=== PATIENT | female | born 1955 | race Caucasian/White ===

== ENCOUNTER 2022-01-08 11:04 | Outpatient (REF) | payer MEDICARE, SELFPAY ==
[2022-01-08 13:49] LABS: MANUAL DIFF FLAG NO
[2022-01-08 13:51] LABS: Appearance Urine Clear; Color Urine Yellow; Glucose Urine UA Negative (Negative); Leukocyte Esterase Urine Small (1+) (Negative); Nitrite Urine Negative (Negative); PH 5.5 (5.0-9.0); UMIC TRIGGER UA YES; Urine Blood Negative (Negative); Urine Ketones Negative (Negative); Urine Protein Negative (Neg-Trace)
[2022-01-08 13:55] LABS: Basophils Percent Auto 0.4 % (0-2); Eosinophils Absolute Auto 0.3 X10*3/uL (0.0-0.4); Hematocrit 37.6 % (37.0-47.0); Hemoglobin 12.2 g/dl (12.0-16.0); Imm Gran Abs Auto 0.02 X10*3/uL (0.00-0.03); Imm Gran Pct Auto 0.2 % (0.0-0.4); Lymphocytes Absolute Auto 2.3 X10*3/uL (1.2-4.9); Lymphocytes Percent Auto 23.6 % (20-40); Mean Corpuscular HGB Conc 32.4 g/dl (31.0-35.0); Mean Corpuscular Hemoglobin 27.4 pg (27.0-33.0); Mean Corpuscular Volume 84.5 fL (80.0-98.0); Mean Platelet Volume 9.8 fL (9.4-12.3); Monocytes Absolute Auto 0.9 X10*3/uL (0.1-1.2); Monocytes Percent Auto 8.9 % (2-11); Neutrophils Absolute Auto 6.2 x10*3/uL (2.0-8.3); Neutrophils Percent Auto 63.9 % (45-73); Platelet Count 394 X10*3/uL (160-400); Red Blood Count 4.45 X10*6/uL (4.20-5.50); White Blood Count 9.7 X10*3/uL (4.8-10.8)
[2022-01-08 14:05] LABS: Bacteria Urine None Seen (None Seen); C Reactive Protein 0.71 mg/dL (< or = 0.50); Hyaline Casts Urine 0-2 /LPF (0-2); RBC Urine 0-2 /HPF (0-2); Rheumatoid Factor < 15.0 IU/mL (<15.0); Squamous Epithelial Cell Urine 0-2 /HPF (0-2); Uric Acid 6.3 mg/dL (2.4-5.7); WBC Urine 0-5 /HPF (0-5)
[2022-01-08 14:33] LABS: Creatinine Urine 159.06 mg/dL; Total Protein Urine Random < 7 mg/dL (<12)
[2022-01-08 15:25] LABS: Erythrocyte Sedimentation Rate 23 MM/HR (0-20)
[2022-01-09 04:56] LABS: HBc Num1 0.09 S/CO (0.00-0.79); HBsAGNum1 0.17 S/CO (0.00-0.99); Hepatitis A Antibody IgM 0.19 Index (0-0.79); Hepatitis B Core Antibody Nonreactive (Nonreactive); Hepatitis B Surface Antigen Negative (Negative); ~HepC Num1 0.12 S/CO (0.00-0.79); ~Hepatitis A Antibody IgM Nonreactive (Nonreactive); ~Hepatitis B Surface Antibody NONREACTIVE (Nonreactive); ~Hepatitis C Antibody Nonreactive (Nonreactive)
[2022-01-09 10:57] LABS: Complement C3 167 mg/dL (83-193)
[2022-01-10 14:56] LABS: IgA 121 mg/dL (70-320); IgG 917 mg/dL (600-1540); IgM 77 mg/dL (50-300)
[2022-01-10 23:02] LABS: Prot Elec - Albumin 4.2 g/dL (3.8-4.8); Prot Elec - Alpha1 0.3 g/dL (0.2-0.3); Prot Elec - Beta 1 0.5 g/dL (0.4-0.6); Prot Elec - Beta 2 0.4 g/dL (0.2-0.5); Prot Elec - Gamma 0.8 g/dL (0.8-1.7); Prot Elec - Total Protein 7.1 g/dL (6.1-8.1)
[2022-01-10 23:11] LABS: Anti DNA DS Antibody <1 IU/mL; Antibody to SS-A Antigen <1.0 NEG AI (<1.0 NEG); Antibody to SS-B Antigen <1.0 NEG AI (<1.0 NEG); SM/Ribonucleoprotein Ab <1.0 NEG AI (<1.0 NEG); Scleroderma 70 Antibody <1.0 NEG AI (<1.0 NEG); Smith Protein <1.0 NEG AI (<1.0 NEG)
[2022-01-11 00:07] LABS: TS Negative Control Passed; TS Panel A 0; TS Panel B 3; TS Positive Control Passed; TSpotTB Negative (Negative)
[2022-01-11 13:17] LABS: Cyclic Citrullinated Peptide <16 UNITS
[2022-01-11 15:07] LABS: Anti Nuclear Antibody Pattern Nuclear, Centromere; Anti Nuclear Antibody Screen POSITIVE (NEGATIVE)
[2022-01-13 15:36] LABS: Beta-2 Glycoprotein IgA <2.0 U/mL (<20.0); Beta-2 Glycoprotein IgG <2.0 U/mL (<20.0); Beta-2 Glycoprotein IgM <2.0 U/mL (<20.0)
[2022-01-15 14:22] LABS: Cardiolipin IgG Ab <2.0 GPL-U/mL; Cardiolipin IgM Ab <2.0 MPL-U/mL
== END 2022-01-08 11:05 | disposition home or self-care (01) ==
LOC: HO.10HDL 11:04
PROVIDERS: Visit Provider Student in an Organized Health Care Education/Training Program
DX: Z11.59 Encounter for screening for other viral diseases (principal); Z11.7 Encounter for testing for latent tuberculosis infection; M25.512 Pain in left shoulder; M35.3 Polymyalgia rheumatica; R76.8 Other specified abnormal immunological findings in serum
CPT/HCPCS: 36415; 81001; 82784; 84156; 84165; 84550; 85025; 85652; 86038; 86039; 86140; 86146; 86147; 86160; 86200; 86225; 86235; 86334; 86431; 86481; 86704; 86706; 86709; 86803; 87340; 99202

== ENCOUNTER → 2022-02-06 10:23 | Outpatient (BNVA) | payer MEDICARE, SELFPAY | PROVIDERS: PCP Internal Medicine; Referring Provider Internal Medicine; Visit Provider Student in an Organized Health Care Education/Training Program | DX: Z13.820 Encounter for screening for osteoporosis (principal); M35.3 Polymyalgia rheumatica; R76.8 Other specified abnormal immunological findings in serum; M70.61 Trochanteric bursitis, right hip; M70.62 Trochanteric bursitis, left hip | CPT/HCPCS: 99212 ==

== ENCOUNTER 2022-03-26 09:29 | Outpatient (REF) | payer MEDICARE, SELFPAY ==
[2022-03-26 11:11] LABS: MANUAL DIFF FLAG NO
[2022-03-26 11:27] LABS: Basophils Absolute Auto 0.1 X10*3/uL (0.0-0.2); Basophils Percent Auto 0.7 % (0-2); Eosinophils Absolute Auto 0.4 X10*3/uL (0.0-0.4); Eosinophils Percent Auto 4.2 % (0-4); Hemoglobin 11.9 g/dl (12.0-16.0); Imm Gran Abs Auto 0.04 X10*3/uL (0.00-0.03); Imm Gran Pct Auto 0.4 % (0.0-0.4); Lymphocytes Absolute Auto 2.9 X10*3/uL (1.2-4.9); Lymphocytes Percent Auto 27.6 % (20-40); Mean Corpuscular HGB Conc 32.2 g/dl (31.0-35.0); Mean Corpuscular Hemoglobin 27.4 pg (27.0-33.0); Mean Corpuscular Volume 85.1 fL (80.0-98.0); Mean Platelet Volume 9.8 fL (9.4-12.3); Monocytes Absolute Auto 0.9 X10*3/uL (0.1-1.2); Monocytes Percent Auto 9.1 % (2-11); Platelet Count 370 X10*3/uL (160-400); Red Blood Count 4.35 X10*6/uL (4.20-5.50); Red Cell Distribution Width 13.3 % (11.0-16.0); White Blood Count 10.4 X10*3/uL (4.8-10.8)
[2022-03-26 11:54] LABS: Alanine Aminotransferase 20 U/L (0-31); Albumin Level 4.2 g/dL (3.5-5.0); Alkaline Phosphatase 75 U/L (39-117); Anion Gap 11 (12-20); Aspartate Amino Transferase 19 U/L (5-31); Bilirubin Total 0.5 mg/dL (0.0-1.0); Blood Urea Nitrogen 19 mg/dL (9-16); C Reactive Protein 0.74 mg/dL (< or = 0.50); Calcium 9.4 mg/dL (8.4-10.2); Carbon Dioxide 32 mmol/L (22-29); Chloride 101 mmol/L (96-108); Estimated Glomerular Filt Rate > 60; Glucose Random 100 mg/dL (60-115); Potassium 3.8 mmol/L (3.3-5.1); Sodium 140 mmol/L (135-145); Total Protein 6.7 g/dL (6.5-8.0)
[2022-03-26 12:02] LABS: Erythrocyte Sedimentation Rate 23 MM/HR (0-20)
== END 2022-03-26 09:30 | disposition home or self-care (01) ==
LOC: HO.WFDLDS 09:29
PROVIDERS: Visit Provider Student in an Organized Health Care Education/Training Program
DX: M35.3 Polymyalgia rheumatica (principal)
CPT/HCPCS: 36415; 80053; 85025; 85652; 86140

== ENCOUNTER → 2022-04-03 10:09 | Outpatient (BNVA) | payer MEDICARE, SELFPAY | PROVIDERS: PCP Internal Medicine; Visit Provider Student in an Organized Health Care Education/Training Program | DX: M35.3 Polymyalgia rheumatica (principal); Z13.820 Encounter for screening for osteoporosis; R76.8 Other specified abnormal immunological findings in serum; M70.61 Trochanteric bursitis, right hip; M70.62 Trochanteric bursitis, left hip | CPT/HCPCS: 99212 ==

== ENCOUNTER 2022-06-27 11:30 | Outpatient (REF) | payer MEDICARE, SELFPAY ==
[2022-06-27 13:59] LABS: MANUAL DIFF FLAG NO
[2022-06-27 14:05] LABS: Basophils Absolute Auto 0.1 X10*3/uL (0.0-0.2); Basophils Percent Auto 0.6 % (0-2); Eosinophils Absolute Auto 0.3 X10*3/uL (0.0-0.4); Eosinophils Percent Auto 2.9 % (0-4); Hematocrit 37.7 % (37.0-47.0); Hemoglobin 12.2 g/dl (12.0-16.0); Imm Gran Abs Auto 0.03 X10*3/uL (0.00-0.03); Imm Gran Pct Auto 0.3 % (0.0-0.4); Lymphocytes Absolute Auto 2.6 X10*3/uL (1.2-4.9); Lymphocytes Percent Auto 29.3 % (20-40); Mean Corpuscular HGB Conc 32.4 g/dl (31.0-35.0); Mean Corpuscular Hemoglobin 26.9 pg (27.0-33.0); Mean Platelet Volume 9.8 fL (9.4-12.3); Monocytes Absolute Auto 0.8 X10*3/uL (0.1-1.2); Monocytes Percent Auto 9.3 % (2-11); Neutrophils Absolute Auto 5.1 x10*3/uL (2.0-8.3); Neutrophils Percent Auto 57.6 % (45-73); Platelet Count 355 X10*3/uL (160-400); Red Blood Count 4.54 X10*6/uL (4.20-5.50); Red Cell Distribution Width 13.4 % (11.0-16.0); White Blood Count 8.8 X10*3/uL (4.8-10.8)
[2022-06-27 14:49] LABS: Erythrocyte Sedimentation Rate 22 MM/HR (0-20)
[2022-06-27 15:05] LABS: Alanine Aminotransferase 18 U/L (0-31); Albumin Level 4.2 g/dL (3.5-5.0); Alkaline Phosphatase 79 U/L (39-117); Anion Gap 13 (12-20); Aspartate Amino Transferase 19 U/L (5-31); Bilirubin Total 0.7 mg/dL (0.0-1.0); Blood Urea Nitrogen 25 mg/dL (9-16); Calcium 9.3 mg/dL (8.4-10.2); Carbon Dioxide 29 mmol/L (22-29); Chloride 99 mmol/L (96-108); Estimated Glomerular Filt Rate > 60; Glucose Random 100 mg/dL (60-115); Potassium 4.3 mmol/L (3.3-5.1); Sodium 137 mmol/L (135-145); Total Protein 6.7 g/dL (6.5-8.0)
== END 2022-06-27 11:31 | disposition home or self-care (01) ==
LOC: HO.WFDLDS 11:30
PROVIDERS: Visit Provider Student in an Organized Health Care Education/Training Program
DX: M35.3 Polymyalgia rheumatica (principal)
CPT/HCPCS: 36415; 80053; 85025; 85652; 86140

== ENCOUNTER 2022-07-02 11:27 | Outpatient (REF) | payer MEDICARE, SELFPAY ==
--- NOTE | ~2022-07-02 | XR_ITS ---
EXAMINATION: XR SHOULDER, LEFT CLINICAL INFORMATION: Pain. COMPARISON: None available. TECHNIQUE: AP external rotation, Grashey, scapular Y, and axillary views of the left shoulder. FINDINGS: Bony alignment and mineralization are normal. The glenohumeral joint is intact and shows minimal peripheral osteophyte formation. The acromioclavicular and coracoclavicular intervals are normal. There is mild osteoarthritic change of the acromioclavicular joint. No fracture or dislocation is seen. Within the soft tissues anterior to the proximal left humeral shaft, a 1.7 x 1.2 x 0.6 cm well-marginated calcification is seen, possibly a focus of myositis ossificans. There is no foreign body. No left pneumothorax is seen. XR/XR shoulder LT min 2V IMPRESSION: 1. There is minimal osteoarthritic change of the left glenohumeral joint, and mild osteoarthritic change is seen of the left acromioclavicular joint. 2. No fracture or dislocation is seen. 3. A small focus of myositis ossificans is suspected in the soft tissues anterior to the proximal left humeral shaft.
== END 2022-07-02 11:28 | disposition home or self-care (01) ==
LOC: HO.XRAY 11:27
PROVIDERS: PCP Internal Medicine; Visit Provider Student in an Organized Health Care Education/Training Program
DX: M25.512 Pain in left shoulder (principal); M35.3 Polymyalgia rheumatica; I10 Essential (primary) hypertension; E03.9 Hypothyroidism, unspecified; E78.5 Hyperlipidemia, unspecified; R76.8 Other specified abnormal immunological findings in serum; Z79.899 Other long term (current) drug therapy; Z79.52 Long term (current) use of systemic steroids
CPT/HCPCS: 73030; 99212

== ENCOUNTER 2022-10-08 10:03 | Outpatient (REF) | payer MEDICARE, SELFPAY ==
[2022-10-08 11:12] LABS: MANUAL DIFF FLAG NO
[2022-10-08 11:32] LABS: Basophils Absolute Auto 0.1 X10*3/uL (0.0-0.2); Basophils Percent Auto 0.8 % (0-2); Eosinophils Absolute Auto 0.2 X10*3/uL (0.0-0.4); Hematocrit 36.7 % (37.0-47.0); Imm Gran Abs Auto 0.02 X10*3/uL (0.00-0.03); Imm Gran Pct Auto 0.3 % (0.0-0.4); Lymphocytes Absolute Auto 2.1 X10*3/uL (1.2-4.9); Lymphocytes Percent Auto 25.6 % (20-40); Mean Corpuscular HGB Conc 32.7 g/dl (31.0-35.0); Mean Corpuscular Hemoglobin 27.5 pg (27.0-33.0); Mean Platelet Volume 10.2 fL (9.4-12.3); Monocytes Absolute Auto 0.6 X10*3/uL (0.1-1.2); Neutrophils Percent Auto 62.3 % (45-73); Platelet Count 420 X10*3/uL (160-400); Red Blood Count 4.37 X10*6/uL (4.20-5.50); Red Cell Distribution Width 14.2 % (11.0-16.0)
[2022-10-08 11:58] LABS: Alanine Aminotransferase 17 U/L (0-31); Albumin Level 4.1 g/dL (3.5-5.0); Alkaline Phosphatase 77 U/L (39-117); Anion Gap 13 (12-20); Aspartate Amino Transferase 18 U/L (5-31); Bilirubin Total 0.9 mg/dL (0.0-1.0); Blood Urea Nitrogen 24 mg/dL (9-16); C Reactive Protein 0.82 mg/dL (< or = 0.50); Calcium 10.1 mg/dL (8.4-10.2); Carbon Dioxide 27 mmol/L (22-29); Chloride 102 mmol/L (96-108); Estimated Glomerular Filt Rate > 60; Glucose Random 107 mg/dL (60-115); Potassium 3.4 mmol/L (3.3-5.1); Sodium 139 mmol/L (135-145); Total Protein 6.9 g/dL (6.5-8.0)
[2022-10-08 12:09] LABS: Erythrocyte Sedimentation Rate 23 MM/HR (0-20)
== END 2022-10-08 10:04 | disposition home or self-care (01) ==
LOC: HO.WFDLDS 10:03
PROVIDERS: Visit Provider Student in an Organized Health Care Education/Training Program
DX: M35.3 Polymyalgia rheumatica (principal)
CPT/HCPCS: 36415; 80053; 85025; 85652; 86140

== ENCOUNTER 2022-12-06 10:57 | Outpatient (REF) | payer MEDICARE, SELFPAY ==
[2022-12-06 14:34] LABS: MANUAL DIFF FLAG NO
[2022-12-06 14:57] LABS: Basophils Absolute Auto 0.1 X10*3/uL (0.0-0.2); Basophils Percent Auto 0.9 % (0-2); Eosinophils Absolute Auto 0.2 X10*3/uL (0.0-0.4); Eosinophils Percent Auto 2.4 % (0-4); Hematocrit 36.6 % (37.0-47.0); Hemoglobin 11.9 g/dl (12.0-16.0); Imm Gran Abs Auto 0.02 X10*3/uL (0.00-0.03); Imm Gran Pct Auto 0.2 % (0.0-0.4); Lymphocytes Percent Auto 24.7 % (20-40); Mean Corpuscular HGB Conc 32.5 g/dl (31.0-35.0); Mean Corpuscular Hemoglobin 27.8 pg (27.0-33.0); Mean Corpuscular Volume 85.5 fL (80.0-98.0); Mean Platelet Volume 10.2 fL (9.4-12.3); Monocytes Absolute Auto 0.8 X10*3/uL (0.1-1.2); Monocytes Percent Auto 9.3 % (2-11); Neutrophils Absolute Auto 5.1 x10*3/uL (2.0-8.3); Neutrophils Percent Auto 62.5 % (45-73); Platelet Count 424 X10*3/uL (160-400); Red Blood Count 4.28 X10*6/uL (4.20-5.50); Red Cell Distribution Width 13.5 % (11.0-16.0); White Blood Count 8.2 X10*3/uL (4.8-10.8)
[2022-12-06 15:10] LABS: Alanine Aminotransferase 17 U/L (0-31); Albumin Level 4.3 g/dL (3.5-5.0); Alkaline Phosphatase 74 U/L (39-117); Anion Gap 12 (12-20); Aspartate Amino Transferase 19 U/L (5-31); Bilirubin Total 0.6 mg/dL (0.0-1.0); Blood Urea Nitrogen 22 mg/dL (9-16); C Reactive Protein 0.94 mg/dL (< or = 0.50); Carbon Dioxide 29 mmol/L (22-29); Chloride 100 mmol/L (96-108); Estimated Glomerular Filt Rate > 60; Glucose Random 105 mg/dL (60-115); Potassium 3.8 mmol/L (3.3-5.1); Sodium 137 mmol/L (135-145); Total Protein 7.1 g/dL (6.5-8.0)
[2022-12-06 15:37] LABS: Erythrocyte Sedimentation Rate 27 MM/HR (0-20)
== END 2022-12-06 10:58 | disposition home or self-care (01) ==
LOC: HO.WFDLDS 10:57
PROVIDERS: Visit Provider Student in an Organized Health Care Education/Training Program
DX: M35.3 Polymyalgia rheumatica (principal)
CPT/HCPCS: 36415; 80053; 85025; 85652; 86140

== ENCOUNTER 2022-12-10 07:50 | Outpatient (AMB) | payer MEDICARE, SELFPAY ==
[2022-12-10 07:53] VITALS: BP 154/66; PULSE 76; TEMP 36.2; O2SAT 99; BMI 30.2
--- NOTE | 2022-12-10 07:53 | MHC.OFFVIS ---
Intake Vital Signs 12/10/22 07:53 Height 5 ft 4 in Weight 175 lb 11.335 oz BMI 30.2 BP 154/66 H Blood Pressure Location Rt brachial Position Sitting Pulse 76 Pulse Source Pulse Oximeter Temp 97.2 F Temp Source Skin Pulse Oximetry (%) 99 Oxygen Delivery Method Room Air Comment just took bp meds Intake Visit Reasons: PMR Intake Note: Patient here for PMR follow up. Recent hospitalization at [facility]. 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 Over the last few months patient went to the emergency room once for elevated blood pressure, she was found to have renal artery stenosis and her blood pressure medications are being adjusted. Patient was also admitted for colitis for 4-5 days. She states that she continues to get intermittent nausea and stomach upset, intermittent loose stools. She is currently on 5 mg daily a prednisone 3 mg in the morning and 2 mg at night. Feels quite well on 5 mg of prednisone. Not 100% Initial history: This is a 66-year-old female with a past medical history of hypertension, hypothyroidism, dyslipidemia, anxiety, depression, PMR presents for evaluation of PMR. Condition started in January of 2020 with abrupt onset of diffuse stiffness of her body especially her neck, shoulders, thighs. She was immediately started on prednisone 20 mg with significant improvement of her symptoms. In May of 2020 she went to the ER for headache and at that time she was evaluated for temporal arthritis she was started on prednisone 60 mg daily which did not help her headaches but gave her side effects, eventually she had a temporal artery biopsy which was negative for temporal arteritis. Since then patient has been tapering her prednisone slowly. She is currently on 3 mg of prednisone in the morning and 2 mg at night. She feels that taking a dose at night helps her morning stiffness. She currently feels some stiffness of her arms and thighs in the morning that improves in about half an hour but she remains stiff throughout the day. She denies any pain in her hands or feet. [facility] Medical History PMR (polymyalgia rheumatica) DRAKE positive Depression Anxiety Hypothyroidism Hypertension Surgical History H/O bone graft History of temporal artery biopsy S/P silicone breast implant Hx of tonsillectomy History of 2 sections Family History Father CHF (congestive heart failure) Alzheimer disease Mother Pancreatic cancer Hypertension Diabetes Maternal Uncle Thyroid cancer Sister Psoriasis Social History Household Members: Significant Other Alcohol intake: current Alcohol intake frequency: a few times a month Alcohol type: wine Patient Tobacco Use Status: Never used Tobacco Current occupational status: retired Review of Systems Musc Reports stiffness Psych Reports no additional complaints Physical Exam Vital Signs: Last Vital Signs Temp 97.2 F 12/10/22 07:53 Pulse 76 12/10/22 07:53 BP 154/66 H 12/10/22 07:53 Pulse Ox 99 12/10/22 07:53 Oxygen Delivery Method Room Air 12/10/22 07:53 BMI result Body Mass Index 30.2 Const General: cooperative, healthy appearing, comfortable, no acute distress and well developed Nutritional Appearance: obese Orientation/consciousness: patient oriented x3 Limitations: no limitations HEENT Head: Yes normocephalic and Yes atraumatic Mouth: Normal oral and palatal mucosa present Resp Effort & Inspection: normal respiratory effort and able to speak in complete sentences Auscultation: clear to auscultation bilaterally Cardio Rate: regular rate Rhythm: regular rhythm Heart sounds: S1 normal heart sound present and S2 normal heart sound present Neuro General: patient oriented x3 Extrem Other: No synovitis Mild shoulder stiffness and pain on full abduction No hip stiffness or pain with hip manipulation bilaterally Negative trochanteric bursa area tenderness bilaterally Results Reviewed Results Reviewed: DEXA 06/2020 Lumbar Spine T-score is 3.3. (SD relative to 20-29 y/o adult) Z-score is 5.2. (SD relative to age matched peers) This is considered normal by WHO criteria. ? Left Hip T-score is 2.1. Z-score is 3.7. This is considered normal by WHO criteria. ? Comparison: 07/16/2013 and 10/13/2007. Lumbar spine: 1.5% increase in bone mineral density compared with 2013, not statistically significant. 5.3% increase in bone mineral density compared with 2007, statistically significant at the 95% confidence level. Left hip: 3.6% increase in bone mineral density compared with 2013 and 4.3% increase compared with 2007, both statistically significant at the 95% confidence level. ? Assessment & Plan Assessment & Plan (1) PMR (polymyalgia rheumatica): Comment: Diagnosed 01/2020 with abrupt onset of diffuse stiffness of her body especially her neck, shoulders, thighs.? Dramatic response to prednisone 20 mg. In 05/2020 she went to the ER for headache and at that time she was evaluated for temporal arteritis she was started on prednisone 60 mg daily which did not help her headaches but gave her side effects, eventually she had a temporal artery biopsy which was negative for temporal arteritis. Code(s): M35.3 - Polymyalgia rheumatica Plan: This is a 67-year-old female with PMR who presents for follow-up.? Doing very well on prednisone 5 mg daily. Inflammatory markers slightly elevated. Kevzara was looked into, but patient would have a significantly high co-pay. We discussed our options. I recommend starting methotrexate as a steroid sparing agent. We discussed possible side effects of methotrexate. Patient is worried about side effects but she will read up on low-dose methotrexate. Today patient prefers to stay on prednisone. We discussed long-term side effects of prednisone. Advised yearly ophthalmology follow-up to evaluate for cataracts and glaucoma. Patient's most recent DEXA scan in 2020 was within normal. She is scheduled for another DEXA scan in the coming few months. I also explained cardiovascular toxicity of long-term steroids especially that she has been diagnosed with renal artery stenosis. For now will alternate 5 mg of prednisone with 4 mg daily. Labs before next visit in 3 months (2) DRAKE positive: Code(s): R76.8 - Other specified abnormal immunological findings in serum Plan: Interestingly patient has a positive DRAKE in a centromere pattern. There are no signs of scleroderma. She has no Raynaud's, she has normal nailfold capillaroscopy. Specific sub serologies for scleroderma are negative. (3) Screening for osteoporosis: Code(s): Z13.820 - Encounter for screening for osteoporosis Plan: Bone density scan 2020 showed increased T and Z-score. Patient is scheduled for another DEXA scan in the coming few months. ? Plan I spent 32 minutes reviewing patient's chart, evaluating patient, ordering diagnostic workup, counseling patient and documenting in the chart Orders: Orders Complete Blood Count Auto Diff 3 Months M35.3 - Polymyalgia rheumatica Comprehensive Met. Panel 3 Months M35.3 - Polymyalgia rheumatica C Reactive Protein 3 Months M35.3 - Polymyalgia rheumatica Erythrocyte Sedimentation Rate 3 Months M35.3 - Polymyalgia rheumatica Medications: Changed From prednisone 3mg QAM, 2mg QHS orally per pharmacy request; To prednisone 3mg QAM, 2mg QHS orally 150 tabs 2RF Coding Level of Care Code Est Pt Level 4 (75696) Diagnoses PMR (polymyalgia rheumatica) M35.3 DRAKE positive R76.8 Screening for osteoporosis Z13.820
== END 2022-12-10 08:23 | disposition home or self-care (01) ==
PROVIDERS: PCP Internal Medicine; Visit Provider Student in an Organized Health Care Education/Training Program
DX: M35.3 Polymyalgia rheumatica (principal); R76.8 Other specified abnormal immunological findings in serum; Z13.820 Encounter for screening for osteoporosis
CPT/HCPCS: 99214

== ENCOUNTER → 2022-12-10 07:50 | Outpatient (BNVA) | payer MEDICARE, SELFPAY | PROVIDERS: PCP Internal Medicine; Visit Provider Student in an Organized Health Care Education/Training Program | DX: M35.3 Polymyalgia rheumatica (principal); R76.8 Other specified abnormal immunological findings in serum | CPT/HCPCS: 99212 ==

== ENCOUNTER 2023-02-27 10:35 | Outpatient (REF) | payer MEDICARE, SELFPAY ==
[2023-02-27 14:24] LABS: MANUAL DIFF FLAG NO
[2023-02-27 14:31] LABS: Basophils Absolute Auto 0.1 X10*3/uL (0.0-0.2); Basophils Percent Auto 0.6 % (0-2); Eosinophils Absolute Auto 0.3 X10*3/uL (0.0-0.4); Eosinophils Percent Auto 2.6 % (0-4); Hematocrit 35.5 % (37.0-47.0); Hemoglobin 11.5 g/dl (12.0-16.0); Imm Gran Abs Auto 0.02 X10*3/uL (0.00-0.03); Imm Gran Pct Auto 0.2 % (0.0-0.4); Lymphocytes Absolute Auto 2.3 X10*3/uL (1.2-4.9); Lymphocytes Percent Auto 23.1 % (20-40); Mean Corpuscular HGB Conc 32.4 g/dl (31.0-35.0); Mean Corpuscular Hemoglobin 26.9 pg (27.0-33.0); Mean Corpuscular Volume 82.9 fL (80.0-98.0); Mean Platelet Volume 10.2 fL (9.4-12.3); Monocytes Absolute Auto 0.8 X10*3/uL (0.1-1.2); Monocytes Percent Auto 7.8 % (2-11); Neutrophils Absolute Auto 6.6 x10*3/uL (2.0-8.3); Neutrophils Percent Auto 65.7 % (45-73); Platelet Count 412 X10*3/uL (160-400); Red Blood Count 4.28 X10*6/uL (4.20-5.50); Red Cell Distribution Width 14.2 % (11.0-16.0); White Blood Count 10.1 X10*3/uL (4.8-10.8)
[2023-02-27 14:46] LABS: Alanine Aminotransferase 17 U/L (0-31); Albumin Level 4.2 g/dL (3.5-5.0); Alkaline Phosphatase 70 U/L (39-117); Anion Gap 10 (12-20); Aspartate Amino Transferase 20 U/L (5-31); Bilirubin Total 0.7 mg/dL (0.0-1.0); Blood Urea Nitrogen 22 mg/dL (9-16); C Reactive Protein 0.51 mg/dL (< or = 0.50); Calcium 9.5 mg/dL (8.4-10.2); Carbon Dioxide 30 mmol/L (22-29); Chloride 98 mmol/L (96-108); Estimated Glomerular Filt Rate > 60; Glucose Random 96 mg/dL (60-115); Sodium 134 mmol/L (135-145); Total Protein 7.1 g/dL (6.5-8.0)
[2023-02-27 15:12] LABS: Erythrocyte Sedimentation Rate 23 MM/HR (0-20)
== END 2023-02-27 10:36 | disposition home or self-care (01) ==
LOC: HO.WFDLDS 10:35
PROVIDERS: Visit Provider Student in an Organized Health Care Education/Training Program
DX: M35.3 Polymyalgia rheumatica (principal)
CPT/HCPCS: 36415; 80053; 85025; 85652; 86140

== ENCOUNTER 2023-03-10 09:38 | Outpatient (AMB) | payer MEDICARE, SELFPAY ==
[2023-03-10 09:39] VITALS: BP 132/68; PULSE 57; BMI 29.7
--- NOTE | 2023-03-10 09:39 | A.OFFVIS_ITS ---
Intake Vital Signs 03/10/23 09:39 Height 5 ft 4 in Weight 173 lb 1.006 oz BMI 29.7 BP 132/68 Blood Pressure Location Rt brachial Position Sitting Pulse 57 Pulse Source Pulse Oximeter Intake Visit Reasons: PMR Intake Note: Patient presents today to follow up on PMR. Remains on prednisone. 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 Patient tried alternating for prednisone for more liquor am Alejandro with 5 mg daily and it did not work out for her. She had recurrent joint pain and stiffness. She was lowering her prednisone by 0.25 mg. She is currently on 4 mg daily and doing well with no joint pain or stiffness. She gets some pain on the outside of her hips when she is in bed especially when turning on her side. But she is generally pain free. Able to play with her grandkids. She was evaluated by an eye doctor 6 weeks ago and she was told her evaluation was unremarkable. Initial history: This is a 66-year-old female with a past medical history of hypertension, hypothyroidism, dyslipidemia, anxiety, depression, PMR presents for evaluation of PMR. Condition started in January of 2020 with abrupt onset of diffuse stiffness of her body especially her neck, shoulders, thighs. She was immediately started on prednisone 20 mg with significant improvement of her symptoms. In May of 2020 she went to the ER for headache and at that time she was evaluated for temporal arthritis she was started on prednisone 60 mg daily which did not help her headaches but gave her side effects, eventually she had a temporal artery biopsy which was negative for temporal arteritis. Since then patient has been tapering her prednisone slowly. She is currently on 3 mg of prednisone in the morning and 2 mg at night. She feels that taking a dose at night helps her morning stiffness. She currently feels some stiffness of her arms and thighs in the morning that improves in about half an hour but she remains stiff throughout the day. She denies any pain in her hands or feet. [facility] Medical History PMR (polymyalgia rheumatica) DRAKE positive Depression Anxiety Hypothyroidism Hypertension Surgical History H/O bone graft History of temporal artery biopsy S/P silicone breast implant Hx of tonsillectomy History of 2 sections Family History Father CHF (congestive heart failure) Alzheimer disease Mother Pancreatic cancer Hypertension Diabetes Maternal Uncle Thyroid cancer Sister Psoriasis Social History Household Members: Significant Other Alcohol intake: current Alcohol intake frequency: a few times a month Alcohol type: wine Patient Tobacco Use Status: Never used Tobacco Current occupational status: retired Review of Systems [facility] Reports arthralgias, Denies joint swelling and Denies stiffness Physical Exam Vital Signs: Last Vital Signs Pulse 57 03/10/23 09:39 BP 132/68 03/10/23 09:39 BMI result Body Mass Index 29.7 Const General: cooperative, healthy appearing, comfortable, no acute distress and well developed Nutritional Appearance: obese Orientation/consciousness: patient oriented x3 Limitations: no limitations HEENT Head: Yes normocephalic and Yes atraumatic Resp Effort & Inspection: normal respiratory effort and able to speak in complete sentences Auscultation: clear to auscultation bilaterally Cardio Rate: regular rate Rhythm: regular rhythm Heart sounds: S1 normal heart sound present and S2 normal heart sound present Neuro General: patient oriented x3 Extrem Other: No synovitis Normal range of motion of both shoulders No hip stiffness or pain with hip manipulation bilaterally Mild trochanteric bursa area tenderness bilaterally Results Reviewed Results Reviewed: DEXA 06/2020 Lumbar Spine T-score is 3.3. (SD relative to 20-29 y/o adult) Z-score is 5.2. (SD relative to age matched peers) This is considered normal by WHO criteria. ? Left Hip T-score is 2.1. Z-score is 3.7. This is considered normal by WHO criteria. ? Comparison: 07/16/2013 and 10/13/2007. Lumbar spine: 1.5% increase in bone mineral density compared with 2013, not statistically significant. 5.3% increase in bone mineral density compared with 2007, statistically significant at the 95% confidence level. Left hip: 3.6% increase in bone mineral density compared with 2013 and 4.3% increase compared with 2007, both statistically significant at the 95% confidence level. DXA BONE DENSITY STUDY 1+ SITS AXIAL SKEL Exam Date: 12/24/2022 1:24 PM Ordering Diagnosis: Screening for osteoporosis ? STUDY: DUAL ENERGY X-RAY ABSORPTIOMETRY / DXA ? REASON FOR EXAM: Female, 67 years old. Menopausal/postmenopausal disorder ? TECHNIQUE: Bone Mineral Density (BMD) measurements of the lumbar spine and left hip were obtained. ? COMPARISON: July 03, 2020 ? FINDINGS: ? L1-L4 T score: 3.6. This corresponds to Normal bone density. This represents a 2.6 % increase in bone density compared with prior exam from July 03, 2020. ? Left femoral neck T score: 2.2. This corresponds to Normal bone density. Left total hip T score: 2.3. This corresponds to Normal bone density. This represents a 1.0 % increase in bone density compared with prior exam from July 03, 2020. ? IMPRESSION IMPRESSION: Normal bone density ? ? Assessment & Plan Assessment & Plan (1) PMR (polymyalgia rheumatica): Comment: Diagnosed 01/2020 with abrupt onset of diffuse stiffness of her body especially her neck, shoulders, thighs.? Dramatic response to prednisone 20 mg. In 05/2020 she went to the ER for headache and at that time she was evaluated for temporal arteritis she was started on prednisone 60 mg daily which did not help her headaches but gave her side effects, eventually she had a temporal artery biopsy which was negative for temporal arteritis. Code(s): M35.3 - Polymyalgia rheumatica Plan: This is a 67-year-old female with PMR who presents for follow-up.? Doing very well on prednisone 4 mg daily. Inflammatory markers almost normal In previous visits: Beckie was looked into, but patient would have a significantly high co-pay. We discussed our options. I recommend starting methotrexate as a steroid sparing agent. We discussed possible side effects of methotrexate. Patient is worried about side effects and is not ready to start methotrexate. Patient is doing well on prednisone. Previously when we tapered prednisone down to 2 mg daily she flared. We discussed long-term side effects of prednisone. Advised yearly ophthalmology follow-up to evaluate for cataracts and glaucoma. Patient's most recent DEXA scan in 2022 was within normal. I also explained cardiovascular toxicity of long-term steroids especially that she has been diagnosed with renal artery stenosis. For now remain on 4 mg daily and attempt to slowly taper to 3 mg daily Labs before next visit in 3 months (2) DRAKE positive: Code(s): R76.8 - Other specified abnormal immunological findings in serum Plan: Interestingly patient has a positive DRAKE in a centromere pattern. There are no signs of scleroderma. She has no Raynaud's, she has normal nailfold capillaroscopy. Specific sub serologies for scleroderma are negative. (3) Screening for osteoporosis: Code(s): Z13.820 - Encounter for screening for osteoporosis Plan: Bone density scan 2022 showed increased T and Z-score. ? Plan I spent 27 minutes reviewing patient's chart, evaluating patient, ordering diagnostic workup, counseling patient and documenting in the chart Orders: Orders Comprehensive Met. Panel 3 Months M35.3 - Polymyalgia rheumatica C Reactive Protein 3 Months M35.3 - Polymyalgia rheumatica Erythrocyte Sedimentation Rate 3 Months M35.3 - Polymyalgia rheumatica Complete Blood Count Auto Diff 3 Months M35.3 - Polymyalgia rheumatica Coding Level of Care Code Est Pt Level 4 (63071) Diagnoses PMR (polymyalgia rheumatica) M35.3 DRAKE positive R76.8 Screening for osteoporosis Z13.820
== END 2023-03-10 09:56 | disposition home or self-care (01) ==
PROVIDERS: PCP Internal Medicine; Visit Provider Student in an Organized Health Care Education/Training Program
DX: M35.3 Polymyalgia rheumatica (principal); R76.8 Other specified abnormal immunological findings in serum; Z13.820 Encounter for screening for osteoporosis
CPT/HCPCS: 99214

== ENCOUNTER → 2023-03-10 09:38 | Outpatient (BNVA) | payer MEDICARE, SELFPAY | PROVIDERS: PCP Internal Medicine; Visit Provider Student in an Organized Health Care Education/Training Program | DX: Z13.820 Encounter for screening for osteoporosis (principal); M35.3 Polymyalgia rheumatica; R76.8 Other specified abnormal immunological findings in serum | CPT/HCPCS: 99212 ==

== ENCOUNTER 2023-06-05 10:10 | Outpatient (REF) | payer MEDICARE, SELFPAY ==
[2023-06-05 11:19] LABS: MANUAL DIFF FLAG NO
[2023-06-05 11:44] LABS: Basophils Absolute Auto 0.1 X10*3/uL (0.0-0.2); Basophils Percent Auto 0.5 % (0-2); Eosinophils Absolute Auto 0.3 X10*3/uL (0.0-0.4); Eosinophils Percent Auto 2.5 % (0-4); Hematocrit 36.8 % (37.0-47.0); Hemoglobin 12.2 g/dl (12.0-16.0); Imm Gran Abs Auto 0.03 X10*3/uL (0.00-0.03); Imm Gran Pct Auto 0.3 % (0.0-0.4); Lymphocytes Absolute Auto 2.2 X10*3/uL (1.2-4.9); Lymphocytes Percent Auto 19.8 % (20-40); Mean Corpuscular HGB Conc 33.2 g/dl (31.0-35.0); Mean Corpuscular Hemoglobin 27.4 pg (27.0-33.0); Mean Corpuscular Volume 82.7 fL (80.0-98.0); Mean Platelet Volume 9.8 fL (9.4-12.3); Monocytes Absolute Auto 0.9 X10*3/uL (0.1-1.2); Neutrophils Absolute Auto 7.5 x10*3/uL (2.0-8.3); Neutrophils Percent Auto 68.9 % (45-73); Platelet Count 402 X10*3/uL (160-400); Red Blood Count 4.45 X10*6/uL (4.20-5.50); White Blood Count 10.9 X10*3/uL (4.8-10.8)
[2023-06-05 11:54] LABS: Erythrocyte Sedimentation Rate 23 MM/HR (0-20)
[2023-06-05 12:39] LABS: Alanine Aminotransferase 16 U/L (0-31); Albumin Level 4.2 g/dL (3.5-5.0); Alkaline Phosphatase 78 U/L (39-117); Anion Gap 13 (12-20); Aspartate Amino Transferase 18 U/L (5-31); Bilirubin Total 0.5 mg/dL (0.0-1.0); Blood Urea Nitrogen 24 mg/dL (9-16); C Reactive Protein 0.49 mg/dL (< or = 0.50); Calcium 9.4 mg/dL (8.4-10.2); Carbon Dioxide 30 mmol/L (22-29); Chloride 99 mmol/L (96-108); Estimated Glomerular Filt Rate > 60; Glucose Random 96 mg/dL (60-115); Potassium 3.5 mmol/L (3.3-5.1); Sodium 138 mmol/L (135-145); Total Protein 7.2 g/dL (6.5-8.0)
== END 2023-06-05 10:11 | disposition home or self-care (01) ==
LOC: HO.WFDLDS 10:10
PROVIDERS: Visit Provider Student in an Organized Health Care Education/Training Program
DX: M35.3 Polymyalgia rheumatica (principal)
CPT/HCPCS: 36415; 80053; 85025; 85652; 86140

== ENCOUNTER 2023-06-09 09:13 | Outpatient (AMB) | payer MEDICARE, SELFPAY ==
--- NOTE | 2023-06-09 09:19 | MHC.OFFVIS ---
Intake Vital Signs 06/09/23 09:20 Height 5 ft 4 in Weight 171 lb 1.259 oz BMI 29.4 BP 150/68 H Blood Pressure Location Lt brachial Position Sitting Pulse 61 Pulse Source Pulse Oximeter Temp 97.9 F Temp Source Skin Pulse Oximetry (%) 100 Oxygen Delivery Method Room Air Intake Visit Reasons: PMR Intake Note: Patient last seen 03/10/23 presents today for follow up and test results. [facility] Required: No Accompanied by: Self / Same As Patient Allergies Seasonal Allergies Allergy (Intermediate, Verified 06/09/23 09:19) Sneezing Medication List - Last Reconciled 06/09/23 by Saji Quintanilla MD amlodipine 10 mg PO DAILY aspirin 81 mg PO DAILY fluoxetine 10 mg PO DAILY hydrochlorothiazide 25 mg PO DAILY levothyroxine 50 mcg PO DAILY losartan 100 mg PO DAILY metoprolol succinate ER 25 mg PO DAILY multivitamin 1 tab PO DAILY prednisone 2mg QAM, 1.5mg QHS orally daily; HPI HPI Comments History of Present Illness Details 68-year-old female with PMR returns for follow-up. She is on 3.5 mg of prednisone. 2 mg in the morning and 1.5 mg at night. She feels about the same overall. Only minimal stiffness. States that she pulled a muscle in her right lower back about a week ago. It has improved. She has been evaluated by an eye doctor last December and was told that she has floaters. There was no mention of cataracts or glaucoma. Initial history: This is a 66-year-old female with a past medical history of hypertension, hypothyroidism, dyslipidemia, anxiety, depression, PMR presents for evaluation of PMR. Condition started in January of 2020 with abrupt onset of diffuse stiffness of her body especially her neck, shoulders, thighs. She was immediately started on prednisone 20 mg with significant improvement of her symptoms. In May of 2020 she went to the ER for headache and at that time she was evaluated for temporal arthritis she was started on prednisone 60 mg daily which did not help her headaches but gave her side effects, eventually she had a temporal artery biopsy which was negative for temporal arteritis. Since then patient has been tapering her prednisone slowly. She is currently on 3 mg of prednisone in the morning and 2 mg at night. She feels that taking a dose at night helps her morning stiffness. She currently feels some stiffness of her arms and thighs in the morning that improves in about half an hour but she remains stiff throughout the day. She denies any pain in her hands or feet. [facility] Medical History PMR (polymyalgia rheumatica) DRAKE positive Depression Anxiety Hypothyroidism Hypertension Surgical History H/O bone graft History of temporal artery biopsy S/P silicone breast implant Hx of tonsillectomy History of 2 sections Family History Father CHF (congestive heart failure) Alzheimer disease Mother Pancreatic cancer Hypertension Diabetes Maternal Uncle Thyroid cancer Sister Psoriasis Social History Household Members: Significant Other Alcohol intake: current Alcohol intake frequency: a few times a month Alcohol type: wine Patient Tobacco Use Status: Never used Tobacco Current occupational status: retired Female Reproductive History Menstrual Total pregnancies: 3 Number of Living Children: 2 Ab spontaneous: 1 Review of Systems Musc Reports back pain, Denies joint swelling and Reports stiffness Physical Exam Vital Signs: Last Vital Signs Temp 97.9 F 06/09/23 09:20 Pulse 61 06/09/23 09:20 BP 150/68 H 06/09/23 09:20 Pulse Ox 100 06/09/23 09:20 Oxygen Delivery Method Room Air 06/09/23 09:20 BMI result Body Mass Index 29.4 Const General: cooperative, healthy appearing, comfortable, no acute distress and well developed Nutritional Appearance: obese Orientation/consciousness: patient oriented x3 Limitations: no limitations HEENT Head: Yes normocephalic and Yes atraumatic Resp Effort & Inspection: normal respiratory effort and able to speak in complete sentences Auscultation: clear to auscultation bilaterally Cardio Rate: regular rate Rhythm: regular rhythm Heart sounds: S1 normal heart sound present and S2 normal heart sound present Neuro General: patient oriented x3 Extrem Other: No synovitis Normal range of motion of both shoulders No hip stiffness or pain with hip manipulation bilaterally Mild right lumbar paraspinal muscle tenderness No trochanteric bursa area tenderness today Results Reviewed Results Reviewed: DEXA 06/2020 Lumbar Spine T-score is 3.3. (SD relative to 20-29 y/o adult) Z-score is 5.2. (SD relative to age matched peers) This is considered normal by WHO criteria. ? Left Hip T-score is 2.1. Z-score is 3.7. This is considered normal by WHO criteria. ? Comparison: 07/16/2013 and 10/13/2007. Lumbar spine: 1.5% increase in bone mineral density compared with 2013, not statistically significant. 5.3% increase in bone mineral density compared with 2007, statistically significant at the 95% confidence level. Left hip: 3.6% increase in bone mineral density compared with 2013 and 4.3% increase compared with 2007, both statistically significant at the 95% confidence level. DXA BONE DENSITY STUDY 1+ SITS AXIAL SKEL Exam Date: 12/24/2022 1:24 PM Ordering Diagnosis: Screening for osteoporosis ? STUDY: DUAL ENERGY X-RAY ABSORPTIOMETRY / DXA ? REASON FOR EXAM: Female, 67 years old. Menopausal/postmenopausal disorder ? TECHNIQUE: Bone Mineral Density (BMD) measurements of the lumbar spine and left hip were obtained. ? COMPARISON: July 03, 2020 ? FINDINGS: ? L1-L4 T score: 3.6. This corresponds to Normal bone density. This represents a 2.6 % increase in bone density compared with prior exam from July 03, 2020. ? Left femoral neck T score: 2.2. This corresponds to Normal bone density. Left total hip T score: 2.3. This corresponds to Normal bone density. This represents a 1.0 % increase in bone density compared with prior exam from July 03, 2020. ? IMPRESSION IMPRESSION: Normal bone density ? ? Assessment & Plan Assessment & Plan (1) PMR (polymyalgia rheumatica): Comment: Diagnosed 01/2020 with abrupt onset of diffuse stiffness of her body especially her neck, shoulders, thighs.? Dramatic response to prednisone 20 mg. In 05/2020 she went to the ER for headache and at that time she was evaluated for temporal arteritis she was started on prednisone 60 mg daily which did not help her headaches but gave her side effects, eventually she had a temporal artery biopsy which was negative for temporal arteritis. Code(s): M35.3 - Polymyalgia rheumatica Plan: This is a 68-year-old female with PMR who presents for follow-up.? Doing very well on prednisone 3.5 mg daily. Inflammatory markers almost normal In previous visits: Beckie was looked into, but patient would have a significantly high co-pay. We discussed our options. I recommend starting methotrexate as a steroid sparing agent. We discussed possible side effects of methotrexate. Patient is worried about side effects and is not ready to start methotrexate. Patient is doing well on prednisone 3.5 mg daily. Previously when we tapered prednisone down to 2 mg daily she flared. We discussed long-term side effects of prednisone. Advised yearly ophthalmology follow-up to evaluate for cataracts and glaucoma. Patient's most recent DEXA scan in 2022 was within normal. I also explained cardiovascular toxicity of long-term steroids especially that she has been diagnosed with renal artery stenosis. Can continue with prednisone 3.5 mg daily and consider attempting to lower it to 3 mg daily Labs before next visit in 4 months (2) DRAKE positive: Code(s): R76.8 - Other specified abnormal immunological findings in serum Plan: Interestingly patient has a positive RDAKE in a centromere pattern. There are no signs of scleroderma. She has no Raynaud's, she has normal nailfold capillaroscopy. Specific sub serologies for scleroderma are negative. (3) Screening for osteoporosis: Code(s): Z13.820 - Encounter for screening for osteoporosis Plan: Bone density scan 2022 showed increased T and Z-score. ? Plan I spent 27 minutes reviewing patient's chart, evaluating patient, ordering diagnostic workup, counseling patient and documenting in the chart Orders: Orders Comprehensive Met. Panel 4 Months M35.3 - Polymyalgia rheumatica Erythrocyte Sedimentation Rate 4 Months M35.3 - Polymyalgia rheumatica Complete Blood Count Auto Diff 4 Months M35.3 - Polymyalgia rheumatica C Reactive Protein 4 Months M35.3 - Polymyalgia rheumatica Coding Level of Care Code Est Pt Level 4 (74125) Diagnoses PMR (polymyalgia rheumatica) M35.3 DRAKE positive R76.8 Screening for osteoporosis Z13.820
[2023-06-09 09:20] VITALS: BP 150/68; PULSE 61; TEMP 36.6; O2SAT 100; BMI 29.4
== END 2023-06-09 09:37 | disposition home or self-care (01) ==
PROVIDERS: PCP Internal Medicine; Visit Provider Student in an Organized Health Care Education/Training Program
DX: M35.3 Polymyalgia rheumatica (principal); R76.8 Other specified abnormal immunological findings in serum; Z13.820 Encounter for screening for osteoporosis
CPT/HCPCS: 99214

== ENCOUNTER → 2023-06-09 09:13 | Outpatient (BNVA) | payer MEDICARE, SELFPAY | PROVIDERS: PCP Internal Medicine; Visit Provider Student in an Organized Health Care Education/Training Program | DX: M35.3 Polymyalgia rheumatica (principal); R76.8 Other specified abnormal immunological findings in serum; Z13.820 Encounter for screening for osteoporosis | CPT/HCPCS: 99212 ==

== ENCOUNTER 2023-12-16 09:33 | Outpatient (REF) | payer MEDICARE, SELFPAY ==
[2023-12-16 11:36] LABS: MANUAL DIFF FLAG NO
[2023-12-16 11:56] LABS: Basophils Absolute Auto 0.1 X10*3/uL (0.0-0.2); Eosinophils Absolute Auto 0.3 X10*3/uL (0.0-0.4); Hematocrit 35.2 % (37.0-47.0); Hemoglobin 11.6 g/dl (12.0-16.0); Imm Gran Abs Auto 0.02 X10*3/uL (0.00-0.03); Imm Gran Pct Auto 0.3 % (0.0-0.4); Lymphocytes Absolute Auto 1.8 X10*3/uL (1.2-4.9); Lymphocytes Percent Auto 25.8 % (20-40); Mean Corpuscular Hemoglobin 27.6 pg (27.0-33.0); Mean Corpuscular Volume 83.6 fL (80.0-98.0); Mean Platelet Volume 10.1 fL (9.4-12.3); Monocytes Absolute Auto 0.8 X10*3/uL (0.1-1.2); Monocytes Percent Auto 11.1 % (2-11); Neutrophils Absolute Auto 4.1 x10*3/uL (2.0-8.3); Neutrophils Percent Auto 57.8 % (45-73); Platelet Count 371 X10*3/uL (160-400); Red Blood Count 4.21 X10*6/uL (4.20-5.50); Red Cell Distribution Width 14.2 % (11.0-16.0); White Blood Count 7.1 X10*3/uL (4.8-10.8)
[2023-12-16 11:59] LABS: Alanine Aminotransferase 17 U/L (0-31); Albumin Level 4.2 g/dL (3.5-5.0); Alkaline Phosphatase 68 U/L (39-117); Anion Gap 9 (12-20); Aspartate Amino Transferase 20 U/L (5-31); Bilirubin Total 0.7 mg/dL (0.0-1.0); Blood Urea Nitrogen 24 mg/dL (9-16); C Reactive Protein 0.26 mg/dL (< or = 0.50); Calcium 9.7 mg/dL (8.4-10.2); Carbon Dioxide 32 mmol/L (22-29); Chloride 102 mmol/L (96-108); Estimated Glomerular Filt Rate > 60; Glucose Random 106 mg/dL (60-115); Sodium 139 mmol/L (135-145)
[2023-12-16 12:30] LABS: Erythrocyte Sedimentation Rate 16 MM/HR (0-20)
== END 2023-12-16 09:34 | disposition home or self-care (01) ==
LOC: HO.WFDLDS 09:33
PROVIDERS: Visit Provider Student in an Organized Health Care Education/Training Program
DX: M35.3 Polymyalgia rheumatica (principal)
CPT/HCPCS: 36415; 80053; 85025; 85652; 86140

== ENCOUNTER 2023-12-18 09:41 | Outpatient (AMB) | payer MEDICARE, SELFPAY ==
--- NOTE | 2023-12-18 09:47 | MHC.OFFVIS ---
Vital Signs 12/18/23 09:48 Height 5 ft 4 in Weight 172 lb 9.951 oz BMI 29.6 BP 138/82 Blood Pressure Location Rt brachial Position Sitting Pulse 53 Pulse Source Pulse Oximeter Pulse Oximetry (%) 99 Oxygen Delivery Method Room Air Intake Visit Reasons: PMR Intake Note: Patient last seen by Doctor Saji Quintanilla on 06/09/23. Presents today for PMR follow up and test results. Patient would like refill on prednisone today. Allergies Seasonal Allergies Allergy (Intermediate, Verified 12/18/23 09:51) Sneezing Medication List - Last Reconciled 12/18/23 by Saji Quintanilla MD amlodipine 10 mg PO DAILY aspirin 81 mg PO DAILY fluoxetine 10 mg PO DAILY hydrochlorothiazide 25 mg PO DAILY levothyroxine 50 mcg PO DAILY losartan 100 mg PO DAILY metoprolol succinate ER 25 mg PO DAILY multivitamin 1 tab PO DAILY prednisone 2mg QAM, 1.5mg QHS orally daily; HPI Comments Details: 68-year-old female with PMR returns for follow-up. Patient has been slowly tapering her prednisone. She was doing well on prednisone 2.5 mg daily, she lowered it to 2 mg daily about 2 weeks ago, initially she felt that she was having a mild flare-up but things eventually even gout. She is doing well today with no significant joint pain stiffness or swelling. No recent illnesses. Initial history: This is a 66-year-old female with a past medical history of hypertension, hypothyroidism, dyslipidemia, anxiety, depression, PMR presents for evaluation of PMR. Condition started in January of 2020 with abrupt onset of diffuse stiffness of her body especially her neck, shoulders, thighs. She was immediately started on prednisone 20 mg with significant improvement of her symptoms. In May of 2020 she went to the ER for headache and at that time she was evaluated for temporal arthritis she was started on prednisone 60 mg daily which did not help her headaches but gave her side effects, eventually she had a temporal artery biopsy which was negative for temporal arteritis. Since then patient has been tapering her prednisone slowly. She is currently on 3 mg of prednisone in the morning and 2 mg at night. She feels that taking a dose at night helps her morning stiffness. She currently feels some stiffness of her arms and thighs in the morning that improves in about half an hour but she remains stiff throughout the day. She denies any pain in her hands or feet. [facility] Medical History PMR (polymyalgia rheumatica) DRAKE positive Depression Anxiety Hypothyroidism Hypertension Surgical History H/O bone graft History of temporal artery biopsy S/P silicone breast implant Hx of tonsillectomy History of 2 sections Family History Father CHF (congestive heart failure) Alzheimer disease Mother Pancreatic cancer Hypertension Diabetes Maternal Uncle Thyroid cancer Sister Psoriasis Social History Household Members: Significant Other Alcohol intake: current Alcohol intake frequency: a few times a month Alcohol type: wine Patient Tobacco Use Status: Never used Tobacco Current occupational status: retired Female Reproductive History Menstrual Total pregnancies: 3 Number of Living Children: 2 Ab spontaneous: 1 Review of Systems Musc Denies arthralgias, Denies joint swelling, Denies limited range of motion and Denies stiffness Physical Exam Vital Signs: Last Vital Signs Pulse 53 12/18/23 09:48 BP 138/82 12/18/23 09:48 Pulse Ox 99 12/18/23 09:48 Oxygen Delivery Method Room Air 12/18/23 09:48 BMI result Body Mass Index 29.6 Const General: cooperative, healthy appearing, comfortable, no acute distress and well developed Nutritional Appearance: obese Orientation/consciousness: patient oriented x3 Limitations: no limitations HEENT Head: Yes normocephalic and Yes atraumatic Resp Effort & Inspection: normal respiratory effort and able to speak in complete sentences Neuro General: patient oriented x3 Extrem Other: No synovitis Normal range of motion of both shoulders No hip stiffness or pain with hip manipulation bilaterally No trochanteric bursa area tenderness today Assessment & Plan Assessment & Plan (1) PMR (polymyalgia rheumatica): Comment: Diagnosed 01/2020 with abrupt onset of diffuse stiffness of her body especially her neck, shoulders, thighs.? Dramatic response to prednisone 20 mg. In 05/2020 she went to the ER for headache and at that time she was evaluated for temporal arteritis she was started on prednisone 60 mg daily which did not help her headaches but gave her side effects, eventually she had a temporal artery biopsy which was negative for temporal arteritis. Code(s): M35.3 - Polymyalgia rheumatica Category: Medical Plan: This is a 68-year-old female with PMR who presents for follow-up.? Doing very well on prednisone 2 mg daily. Inflammatory markers normal In previous visits: Beckie was looked into, but patient would have a significantly high co-pay. We discussed our options. I recommend starting methotrexate as a steroid sparing agent. We discussed possible side effects of methotrexate. Patient is worried about side effects and is not ready to start methotrexate. Patient is doing well on prednisone 2 mg daily. Previously when we tapered prednisone down to 2 mg daily she flared. We discussed long-term side effects of prednisone. Advised yearly ophthalmology follow-up to evaluate for cataracts and glaucoma. Patient's most recent DEXA scan in 2022 was within normal. I also explained cardiovascular toxicity of long-term steroids especially that she has been diagnosed with renal artery stenosis. At this time patient is stable on 2 mg daily. Advised patient to stay on this toes for 1-2 months then consider tapering further. Labs before next visit in 6 months (2) DRAKE positive: Code(s): R76.8 - Other specified abnormal immunological findings in serum Category: Medical Plan: Interestingly patient has a positive DRAKE in a centromere pattern. There are no signs of scleroderma. She has no Raynaud's, she has normal nailfold capillaroscopy. Specific sub serologies for scleroderma are negative. (3) Screening for osteoporosis: Code(s): Z13.820 - Encounter for screening for osteoporosis Category: Medical Plan: Bone density scan 2022 showed increased T and Z-score. ? Plan I spent 27 minutes reviewing patient's chart, evaluating patient, ordering diagnostic workup, counseling patient and documenting in the chart Orders: Orders Comprehensive Met. Panel 6 Months M35.3 - Polymyalgia rheumatica C Reactive Protein 6 Months M35.3 - Polymyalgia rheumatica Complete Blood Count Auto Diff 6 Months M35.3 - Polymyalgia rheumatica Erythrocyte Sedimentation Rate 6 Months M35.3 - Polymyalgia rheumatica Medications: Changed From prednisone 2mg QAM, 1.5mg QHS orally daily; To prednisone 2.5 mg (2.5 x 1 mg) PO DAILY 225 tabs 1RF Coding Level of Care Code Est Pt Level 4 (06500) Diagnoses PMR (polymyalgia rheumatica) M35.3 DRAKE positive R76.8 Screening for osteoporosis Z13.820
[2023-12-18 09:48] VITALS: BP 138/82; PULSE 53; O2SAT 99; BMI 29.6
== END 2023-12-18 10:37 | disposition home or self-care (01) ==
PROVIDERS: PCP Internal Medicine; Visit Provider Student in an Organized Health Care Education/Training Program
DX: M35.3 Polymyalgia rheumatica (principal); R76.8 Other specified abnormal immunological findings in serum; Z13.820 Encounter for screening for osteoporosis
CPT/HCPCS: 99214

== ENCOUNTER → 2023-12-18 09:41 | Outpatient (BNVA) | payer MEDICARE, SELFPAY | PROVIDERS: PCP Internal Medicine; Visit Provider Student in an Organized Health Care Education/Training Program | DX: M35.3 Polymyalgia rheumatica (principal); R76.8 Other specified abnormal immunological findings in serum; Z13.820 Encounter for screening for osteoporosis | CPT/HCPCS: 99212 ==

== ENCOUNTER 2024-11-11 10:27 | Outpatient (REF) | payer MEDICARE, SELFPAY ==
--- OUTSIDE RECORDS SUMMARY | 2024-11-11 11:21 | XMS_ITS | Clinical Summary ---
Author Organization [facility] Address [address] [place] [id number] Phone Care Team Providers Care [employer] Name Role Phone Brandon Morales MD Primary Care Provider Allergies Active Allergy Reactions Criticality Noted Date Comments Pollen Extracts 07/08/2007 Medications amLODIPine (NORVASC) 10 MG tablet take 1 tablet by mouth everyday at bedtime 3 Active FLUoxetine (PROZAC) 10 MG capsule Take 1 capsule by mouth every morning. 3 Active hydroCHLOROthiazi de (HYDRODIURIL) 25 MG tablet Take 1 tablet by mouth every morning. 3 Active levothyroxine (SYNTHROID, LEVOTHROID) 50 MCG tablet Take 1 tablet by mouth every morning. 3 Active losartan (COZAAR) 100 MG tablet Take 1 tablet by mouth every morning. 3 Active metoprolol succinate (TOPROL-XL) 25 MG 24 hr tablet Take 1 tablet by mouth every morning. 3 Active predniSONE (DELTASONE) 1 MG tablet 2 TABS IN AM,1 TAB IN PM X30D, 1 & 1/2T IN AM & 1TAB IN PM X30D, 1 AND 1/2 TAB IN AM & 1/2 TAB IN PM 3 Active potassium chloride (MICRO-K) 10 mEq CR capsule TAKE 2 CAPSULE BY MOUTH IN THE MONRING AND 2 CAPSULES IN THE EVENING. DO NOT CRUSH OR CHEW 3 Active Ca cit-D3-mag#[id number] (CALTRATE 600+D) 600 mg calcium- 800 unit-50 mg Tab Take 1 tablet by mouth daily. Active therapeutic multivitamin tablet Take 1 tablet by mouth daily. Active Active Problems Problem Noted Date Diagnosed Date Coronary atherosclerosis 09/30/2022 023 Anxiety and depression 08/29/2021 PMR (polymyalgia rheumatica) 03/22/2020 Hypothyroid 06/21/2015 10/18/2022 Impaired fasting glucose 06/21/2015 023 Chronic rhinitis 12/16/2006 10/18/2022 Obesity, unspecified 10/30/2005 10/18/2022 Pure hypercholesterolemia 09/19/20052022 Hypertension 08/13/2005 10/18/2022 Mitral valve disease 08/13/2005 10/18/2022 Overview (10/18/2022): Mitral Valve Prolapse with Mitral Regurgitation IMO update Immunizations No known immunizations Social History Tobacco Use Types Packs/Day Years Used Date Smoking Tobacco: Never Assessed Education Answer Date Recorded Are you interested in more education? Not on juliana e 07/27/2022 Are you concerned about learning? Not on file 07/27/2022 No 07/27/2022 No 07/27/2022 Digital Access Answer Date Recorded No 08/25/2022 No 08/25/2022 Reliable internet access at home? Not on file 08/25/2022 Device with a working camera? Not on file Comments Unknown Sex and Gender Information Value Date Recorded Sex Assigned at Not on file Legal Sex Female 8:59 AM EDT Gender Identity Not on file Sexual Orientation Not on file Last Filed Vital Signs Vital Sign Reading Time Taken Comments Blood Pressure 181/75 10/18/2022 4:10 PM EDT Pulse 81 10/18/2022 4:10 PM EDT Temperature 36.7 C (98.1 F) 10/18/2022 4:10 PM EDT Respiratory Rate 18 10/18/2022 4:10 PM EDT Oxygen Saturation 98% 10/18/2022 4:10 PM EDT Inhaled Oxygen Concentration - - Weight - - Height - - Body Mass Index - - Plan of Treatment Health Maintenance Due Date Last Done Comments CREATININE LEVEL 1954 POTASSIUM LEVEL 1954 TSH LEVEL 1954 DEPRESSION SCREENING 1966 SMOKING Hx and SMOKELESS TOBACCO SCREENING 1967 HEPATITIS C SCREENING 01/28/1972 LIPID PANEL 01/28/1972 MAMMOGRAM 1994 COLOGUARD 1999 COLONOSCOPY 1999 COLORECTAL CANCER SCREENING 1999 FIT TEST 1999 FOBT 1999 SIGMOIDOSCOPY 1999 VIRTUAL COLONOSCOPY 1999 OSTEOPOROSIS SCREENING INITIAL (ONE-TIME) 2019 BLOOD PRESSURE 04/20/2023 10/18/2022 COVID-19 VACCINE ( season) 2023 02/18/2022, 07/06/2021, 07/06/2021, Additional history exists Adult Td,Tdap Booster 03/04/2028 03/04/2018 , 01/04/2009, 01/15/1998 RSV VACCINE (1 - 1-dose 75+ series) 2029 PNEUMOCOCCAL VACCINES (50+ years) Completed 04/19/2020, 04/06/2019 ZOSTER VACCINES Completed 11/02/2020, 07/29, 08/23/2015 HEPATITIS A VACCINES Aged Out No long er eligible based on patient's age to complete this topic HIB VACCINES Aged Out No longer eligi ble based on patient's age to complete this topic MENINGOCOCCAL VACCINES (ACWY) Aged Out No longer eligible based on patient's age to complete this topic MENINGOCOCCAL VACCINES (B) Aged Out N o longer eligible based on patient's age to complete this topic Medical Devices Not on file Insurance [employer] HMO REPLACEMENT [facility] MEDICARE HMO REPLACEMENT [employer] [facility] REPLACEMENT [facility] MEDICARE HMO REPLACEMENT [facility] MEDICARE HMO REPLACEMENT [employer] [employer] [facility] [facility] REPLACEMENT [facility] MEDICARE HMO REPLACEMENT [employer] H[employer] REPLACEMENT Care Teams [employer] Relationship Specialty Start Date End Date Brandon Morales MD PCP - General Internal Medicine 10/18/22 Additional Source Comments The information contained in this document represents components of the legal health record. It is not the complete legal health record.[facility]
--- OUTSIDE RECORDS SUMMARY | 2024-11-11 11:21 | XMS_ITS | Clinical Summary ---
Author Organization [facility], Address [address] [place] [address] [place] [address] Phone Care Team Providers Care Chlorination Operator Name Role Phone Brandon Morales MD Primary Care Provider [phone] Allergies Active Allergy Reactions Criticality Noted Date Comments Pollen Extract 07/08/2007 Medications FLUoxetine (PROzac) 10 MG capsule Take 10 mg by mouth 1 (one) time each day Active losartan (COZAAR) 100 MG tablet Take 100 mg by mouth 1 (one) time each day Active hydroCHLOROthia zide 25 MG tablet Take 25 mg by mouth 1 (one) time each day Active levothyroxine sodium (TIROSINT) 50 MCG capsule Take 50 mcg by mouth 1 (one) time each day Active predniSONE (DELTASONE) 1 MG tablet Take 1 mg by mouth 1 (one) time each day Active Multiple Vitamin (multivitamin) capsule Take 1 capsule by mouth 1 (one) time each day Active levothyroxine (SYNTHROID, LEVOTHROID) 50 MCG tablet Take 50 mcg by mouth 1 (one) time each day 10/04/2022 Active metoprolol succinate XL (TOPROL XL) 25 MG 24 hr tablet Take 25 mg by mouth 1 (one) time each day Do not crush or chew. Active amLODIPine (NORVASC) 5 MG tablet Take 2 tablets (10 mg total) by mouth 1 (one) time each day 60 tablet 11 11/25/2022 Active Active Problems Problem Noted Date Diagnosed Date Coronary atherosclerosis of unspecified type of vessel, [place] or graft 09/30/2022 Serum creatinine above reference range 0 Cyst of kidney 03/16/2015 Hematuria of undiagnosed cause 07/31/2013 Overview (09/30/2022): IMO update Essential hypertension 08/13/2005 Encounters Date Type Department Care Team Description 11/10/2024 Orders Only [facility], [address] [place] [address] Roro Boucher Essential hypertension (Primary Dx); Vitamin D deficiency, not otherwise specified from Last 3 Months Immunizations Immunization Administration Dates Next Due Influenza Split High Dose Pr eservative Free IM 01/14/2022,01/09/2021,12/30/2019 Influenza, MDCK, PF, Quadrivalent 01/20/2019 Influenza, MDCK, Quadrivalen t, with preservative 01/20/2018,01/15/2017 Influenza, Unspecified 01/14/2022,2014,01/21/2014,01/27,01/17/2012,12/18/2010,01/22/2010 ,12/28/2008,02/12/2008,01/31/2006 Pfizer SARS-COV-2 07/06/2021,,06/15/2020,05/24 Pfizer SARS-CoV-2 Bivalent 3 0 mcg/0.3 mL 02/18/2022 Pneumococcal Conjugate 13-Valent 04/06/2019 Pneumococcal Polysaccharide 04/19/2020 Shingrix 11/02/2020,08/15/2020 Td 03/04/2018,01/15/1998 Tdap 01/04/2009 Zoster 08/23/2015 Family History Medical History Relation Comments Heart disease Father Hypertension Father Diabetes Mother Heart disease Mother Hypertension Mother Autoimmune disease Sister Relation Status Comments Father Mother Sister Social History Tobacco Use Types Packs/Day Years Used Date Smoking Tobacco: Never Smokeless Tobacco: Never Tobacco Cessation:Counseling Given: Not Answered Alcohol Use Standard Drinks/Week Comments Not Currently 0 (1 standard drink = 0.6 oz pure alcohol) used to have 1-2/ week, now only on special occassions and n Comments Unknown Sex and Gender Information Value Date Recorded Sex Assigned at Female 09/23/2022 9:27 AM EDT Legal Sex Female 7:53 AM EDT Gender Identity Female 09/23/2022 9:27 AM EDT Sexual Orientation Straight 09/23/2022 9: 27 AM EDT Plan of Treatment Upcoming Encounters Date Type Department Care Team (Late st Contact Info) Description 11/17/2024 1:30 PM EDT Office Visit [facility], [address] [place] [id number] [place] MD [address] [facility] [place] [id number] Health Maintenance Due Date Last Done Comments Breast Cancer Screening 1954 Colorectal Cancer Screening: Annual FOBT 2003 Colorectal Cancer Screening: Colonoscopy 2003 Colorectal Cancer Screening: Sigmoidoscopy 2003 Influenza Vaccine (#1) 2024 4, 12/20/2022, 01/14/2022, Additional history exists Pneumococcal Vaccine: 50+ Years Completed 04/19/2020, 04/06/2019 Hepatitis B Vaccine Aged Out No longe r eligible based on patient's age to complete this topic Insurance [facility] Care Teams Chlorination Operator Relationship Specialty Start Date End Date Brandon Morales MD [address] [place] [id number] PCP - [facility] 09/10/22
--- OUTSIDE RECORDS SUMMARY | 2024-11-11 11:21 | XMS_ITS | Clinical Summary ---
Author Organization [facility] [address] [place] [address] [address] [place] [address] Phone Care Team Providers Care Childcare Teacher Name Role Phone Brandon Morales MD Primary Care Provider Allergies Active Allergy Reactions Criticality Noted Date Comments Bee Pollen 07/08/2007 Other 07/08/2007 Seasonal Allergies Medications nystatin-triam cinolone (MYCOLOG II) ointment APPLY TO AFFECTED AREA NIGHTLY FOR TWO WEEKS THEN TWICE A WEEK 09/30/19 24 Active aspirin 81 mg EC tablet Take 1 tablet (81 mg total) by mouth 1 (one) time each day. Active CALCIUM CITRATE ORAL Take 1 tablet by mouth 1 (one) time each day. Active multivitamin (MULTIPLE VITAMINS ORAL) 1 tablet 1 (one) time each day. Active potassium chloride 20 mEq tablet extended release Take 20 mEq by mouth 1 (one) time each day. 90 tablet 1 02/06/20 24 Active predniSONE (DELTASONE) 1 mg tablet Take 1 tablet (1 mg total) by mouth 2 (two) times a day. Active metoprolol tartrate (LOPRESSOR) 25 mg tablet Take 1 tablet (25 mg total) by mouth 2 (two) times a day. 180 each 1 07/07/19 25 Active losartan (COZAAR) 100 mg tablet TAKE 1 TABLET BY MOUTH EVERYDAY AT BEDTIME 90 tablet 1 08/05/19 25 Active amLODIPine (NORVASC) 10 mg tablet TAKE 1 TABLET BY MOUTH 1 TIME EACH DAY. 90 tablet 1 08/05/19 25 Active diclofenac (VOLTAREN) 1 % topical gel Apply 1 g topically 3 (three) times a day. 90 g 2 09/09/19 25 Active levothyroxine (SYNTHROID, LEVOTHROID) 50 mcg tablet TAKE 1 TABLET BY MOUTH EVERY DAY 90 tablet 1 10/16/19 25 Active hydroCHLOROthi azide (HYDRODIURIL) 25 mg tablet TAKE 1 TABLET BY MOUTH 1 TIME EACH DAY. 90 tablet 11/05/19 25 Active FLUoxetine (PROzac) 10 mg capsule TAKE 1 CAPSULE BY MOUTH 1 TIME EACH DAY. 90 capsule 11/05/19 25 Active FLUoxetine (PROzac) 10 mg capsule Take 1 capsule (10 mg total) by mouth 1 (one) time each day. 90 capsule 1 02/06/20 24 025 Discontinued hydroCHLOROthi azide (HYDRODIURIL) 25 mg tablet Take 1 tablet (25 mg total) by mouth 1 (one) time each day. 90 tablet 1 02/06/20 24 025 Discontinued levothyroxine (SYNTHROID, LEVOTHROID) 50 mcg tablet Take 1 tablet (50 mcg total) by mouth 1 (one) time each day. 90 tablet 1 02/06/20 24 025 Discontinued Hospital, Clinic, or Other Facility Administered Medication Ordered Dose Route Frequency Start Date End Date Status lidocaine (XYLOCAINE) 1 % injection 4 mLIndications:Primary osteoarthritis of right knee 4 mL inj Once PRN Procedure 10/20/2024 10/20/2024 Ended methylPREDNISolone acetate (DEPO-Medrol) injection 80 mgIndications:Primary osteoarthritis of right knee 80 mg IAtc Once PRN Procedure 10/20/2024 10/20/2024 Ended Active Problems Problem Noted Date Diagnosed Date Prediabetes 02/06/2024 Renal artery stenosis ([facility] V24) 12/17/2022 Hypokalemia 12/17/2022 Anxiety and depression 08/29/2021 PMR (polymyalgia rheumatica) ([facility] V24) 03/22 Elevated serum creatinine 03/22/2020 Positive DRAKE (antinuclear antibody) 03/22/2020 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 Hypothyroidism 06/21/2015 Impaired fasting glucose 06/21/2015 Renal cyst 03/16/2015 Gross hematuria 03/16/2015 Hematuria of undiagnosed cause 07/31/2013 Overview (12/31/2023): IMO update Chronic rhinitis 12/16/2006 Obesity, unspecified 10/30/2005 Anxiety state 10/30/2005 Pure hypercholesterolemia 09/19/2005 Mitral valve disease 08/13/2005 Overview (12/31/2023): Mitral Valve Prolapse with Mitral Regurgitation IMO update Hypertension 08/13/2005 Encounters Date Type Department Care Team Description 10/20/2024 8:30 AM EDT Office Visit Orthopedics - [place] [address] [place] [address] Arnav Aviles PA Primary osteoarthritis of right knee (Primary Dx) 09/08/2024 8:30 AM EDT Office Visit Orthopedics [facility] [address] [place] [address] Arnav Aviles PA Primary osteoarthritis of right knee (Primary Dx) from Last 3 Months Immunizations Name Administration Dates Next Due COVID-19 (Pfizer/Comirnaty) 12yo and older 12/25/2023 Influenza Quadravalent, MDCK , 0.5ml, preservative free (Flucelvax) 6mo and older 01/20/2019 Influenza Quadravalent, MDCK , 0.5ml, with preservative (Flucelvax) 6mo and older 12/20/2022,01/14/2022,01/10/2021,01/20,01/15/2017 Influenza trivalent, 0.5mL ( Fluzone High-dose) 65yo and older 12/25/2023,01/09/2021,12/30/2019 Influenza trivalent, with pr eservative (Fluzone; Afluria) 6mo and older 01/09/2015,01/21/2014,2013,01/16,12/18/2010,01/22/2010,12/28/2008 ,02/12/2008,01/31/2006 Influenza, Unspecified 01/14/2022 Pfizer (ages 12 & older) Biv alent, COVID-19 02/18/2022 Pneumococcal conjugate 13 va lent (Prevnar 13, PCV13) 2mo and older 04/06/2019 Pneumococcal polysaccharide 23 valent (Pneumovax 23) 2yo and older 04/19/2020 Respiratory syncytial virus (RSV), unspecified 01/23/2023 Td Tetanus diptheria (Tdvax) 7yo and older 03/04/2018,01/15/1998 Tdap Tetanus diptheria acell ular pertussis (Boostrix; Adacel) 7yo and older 01/04/2009 Zoster Live 08/23/2015 Zoster recombinant (Shingrix ) 19yo and older 11/02/2020,08/15/2020 Surgical History Surgery Date Site/Laterality Comments COLONOSCOPY 05/2004 PROCEDURE: TN COLONOSCOPY FLX DX W/COLLJ SPEC WHEN PFRMD; COMMENT: normal; due 2014 SECTION PROCEDURE: TN DELIVERY ONLY; COMMENT: 2 C/S TONSILLECTOMY PROCEDURE: HISTORICAL TONSILLECTOMY OTHER SURGICAL HISTORY 1988 Bilateral PROCEDURE: IMPLANT BREAST SILICONE/EQ; COMMENT: x2 OTHER SURGICAL HISTORY 07/06/2020 Left PROCEDURE: TN LIGATION/BIOPSY TEMPORAL ARTERY; COMMENT: temporal artery biopsy negative for arteritis - by Dr. Philippe Parekh [facility] Medical History Medical History Date Comments Pure hypercholesterolemia 09/19/2005 DX:Pur e hypercholesterolemia Mitral valve disorders(424.0) 08/13/2005 DX :Mitral valve disorders(424.0); COMMENT: Mitral Valve Prolapse with Mitral Regurgitation Obesity, unspecified 10/30/2005 DX:Obesity, unspecified Nasal/sinus dis NEC 10/30/2005 DX:Nasal/sin us dis NEC Panic disorder without agoraphobia DX:Panic disorder without agoraphobia Anxiety state, unspecified 10/30/2005 DX:An xiety state, unspecified Essential hypertension, benign D X:Essential hypertension, benign Historical Medical DX 07/31/2013 DX:Hematur ia - cause not known Hypothyroid 06/21/2015 DX:Hypothyroid Lichen sclerosus DX:Lichen scler osus Family History Medical History Relation Name Comments No Known Problems Daughter Heart failure Father No Known Problems Maternal Grandfather No Known Problems Maternal Grandmother Diabetes Mother Hypertension Mother Other cancer Mother pancreatic No Known Problems Other No Known Problems Paternal Grandfather No Known Problems Paternal Grandmother No Known Problems Sister No Known Problems Son No Known Problems Uncle Breast cancer Neg Hx Colon cancer Neg Hx Ovarian cancer Neg Hx Uterine cancer Neg Hx Relation Name Status Comments Daughter Alive Healthy Father (Age 80) Alzheimer' s, pneumonia, CHF Maternal Grandfather Lung Ca ncer Maternal Grandmother [place] Mother (Age 78) Pancreatic Cancer,chf,dm,htn Other Paternal Grandfather [place] Paternal Grandmother heart Sister Alive Healthy Son Alive Healthy Uncle MAT UNCLE-THYRO ID CA Social History Tobacco Use Types Packs/Day Years Used Date Smoking Tobacco: Never Smokeless Tobacco: Never Tobacco Cessation:Counseling Given: Not Answered Alcohol Use Standard Drinks/Week Comments Yes 0 (1 standard drink = 0.6 oz pur e alcohol) Housing Instability Answer Date Recorde d Are you worried that in the next 2 months you may not have stable housing? No 06/29/2024 Food Access & Nutrition Answer Date Rec orded Do you have access to a vari ety of food including fruits and vegetables? Yes 06/29/2024 Access to Healthcare Answer Date Record ed Within the last 3 months, ho w many times did you visit the emergency department for your medical care? 0 06/29/2024 Health Literacy Answer Date Recorded How often do you need to hav e someone help you when you read instructions, pamphlets, or other written material from your doctor or pharmacy? Never 06/29/2024 Caregiver: How often do you need to have someone help you when you read instructions, pamphlets, or other written material from your doctor or pharmacy? Not on file 06/29/2024 Financial Risk Answer Date Recorded How hard is it for you to pa y for the very basics like food, housing, medical care, and air conditioning / heating? Not very hard 06/29/2024 Transportation Answer Date Recorded Has the lack of transportati on kept you from meetings, work, or from getting things needed for daily living? No Has the lack of transportati on kept you from medical appointments or from getting medications? No 06/29/2024 Social Isolation Answer Date Recorded How often do you feel lonely or isolated from th ose around you? Never 06/29/2024 Food Risk Answer Date Recorded Within the past 12 months we worried whether our food would run out before we got money to buy more. Never true 06/29/2024 Within the past 12 months th e food we bought just didn't last and we didn't have money to get more. Never true 06/29/2024 Dependent Care Answer Date Recorded Do you need help finding or paying for care for your loved ones. For example, child & adolescent psychiatrist or elderly care for an older adult? No 06/29/2024 Education Answer Date Recorded Do you think completing more education or training, like finishing a GED, going to college, or learning a trade, would be helpful for you? No 06/29/2024 Employment and Income Answer Date Recor ded During the last four weeks, have you been actively looking for work? No 06/29/2024 Living Situation Answer Date Recorded What is your living situation? 0 06/29/2024 Comments No Sex and Gender Information Value Date Recorded Sex Assigned at Not on file Legal Sex Female 1:38 AM EST Gender Identity Not on file Sexual Orientation Not on file Obstetrics History Last Filed Vital Signs Vital Sign Reading Time Taken Comments Blood Pressure 150/58 07/06/2024 8:13 AM EDT provider to recheck bp Pulse 70 07/06/2024 8:13 AM EDT Temperature 36.5 C (97.7 F) 07/06/2024 8:13 AM EDT Respiratory Rate 16 10/20/2024 8:39 AM EDT Oxygen Saturation 98% 07/06/2024 8:1 3 AM EDT Inhaled Oxygen Concentration - - Weight 78.9 kg (174 lb) 10/20/2024 8:39 AM EDT Height 162.6 cm (5' 4 ) 10/20/2024 8:39 AM EDT Body Mass Index 29.87 10/20/2024 8:39 AM EDT Plan of Treatment Upcoming Encounters Date Type Department Care Team (Late st Contact Info) Description 11/18/2024 8:45 AM EDT Office Visit Orthopedics [address] [phone] Arnav Aviles PA [address] [place] [address] 01/05/2025 8:15 AM EDT Office Visit [facility] [address] [phone] Brandon Morales MD [address] [place] [id number] Health Maintenance Due Date Last Done Comments Falls Risk Assessment 03/09/2022 Medicare Annual Wellness Visit 03/09/2022 Breast Cancer Screening 08/30/2023 08/30/19, 08/24/2020, 01/13/2019, Additional history exists Colorectal Cancer Screening: Stool Based Tests (FOBT/FIT) 01/22/2024 01/21/2023 COVID-19 Vaccine ( season) 2024 12/25/2023, 12/20/2022, 02/18/2022, Additional history exists Influenza Vaccine (#1) 2024 , 12/20/2022, 01/14/2022, Additional history exists Hypertension/CHF/CAD Annual BMP Blood Test 06/29/2025 06/29/2024, 10/31/2023 Social Influencers of Health Screening 06/29/2025 06/29/2024 DTaP,Tdap,and Td Vaccines (4 - Td or Tdap) 03/04/2028 03/04/2018, 01/04/2009, 01/15/1998 Cholesterol Screening (Lipid Panel) 04/25/2028 04/25/2023 RSV Immunization Adult Patients (1 - 1-dose 75+ series) 2029 01/23/2023 Osteoporosis Screening (Bone Density Screening) 12/24/2032 12/24/2022, 07/03/2020 Hepatitis C Screening Completed 12/26/1999 Pneumococcal Vaccine: 50+ Years Completed 04/19/2020, 04/06/2019 Zoster Vaccines Completed 11/02/2020, 07/29, 08/23/2015 RSV Immunization Patients Under 20 months Aged Out 01/23/2023 No longer eligible based on patient's age to complete this topic Depression Screening Completed 06/29/2024 HIB Vaccines Aged Out No longer eligi ble based on patient's age to complete this topic HPV Vaccines Aged Out No longer eligi ble based on patient's age to complete this topic Hepatitis A Vaccines Aged Out No long er eligible based on patient's age to complete this topic Hepatitis B Vaccines Aged Out No long er eligible based on patient's age to complete this topic IPV Vaccines Aged Out No longer eligi ble based on patient's age to complete this topic MMR Vaccines Aged Out No longer eligi ble based on patient's age to complete this topic Meningococcal ACWY Vaccine Aged Out N o longer eligible based on patient's age to complete this topic Meningococcal B Vaccine Aged Out No l onger eligible based on patient's age to complete this topic Varicella Vaccines Aged Out No longer eligible based on patient's age to complete this topic Procedures Procedure Name Priority Date/Time Associated Diagnosis Comments TN ARTHROCENTESIS/ASPI RATION/INJECTION MAJOR JOINT/BURSA W/O U/S GUIDANCE Routine 10/20/2024 8:30 AM EDT Primary osteoarthritis of right knee BASIC METABOLIC PANEL Routine 06/29/2024 8:38 AM EDT Primary hypertension Hypokalemia LIPID PANEL Routine 04/25/2023 HM STOOL BASED TEST Routine 01/21/2023 DXA BONE DENSITY STUDY 1+ SITS AXIAL SKEL Routine 12/24/2022 1:24 PM EDT Encounter for screening for osteoporosis SCREENING MAMMOGRAPHY BI 2-VIEW BREAST INC CAD Routine 08/29/2021 9:27 AM EDT Encounter for screening mammogram for malignant neoplasm of breast HEPATITIS C SCREENING Routine 12/26/1999 from Last 3 Months or Most Recently Relevant to Health Maintenance Results * TN ARTHROCENTESIS/ASPIRATION/INJECTION MAJOR JOINT/BURSA W/O U/S GUIDANCE (10/20/2024 8:30 AM EDT) Narrative Arnav Aviles PA - 10/20/2024 8:30 AM EDT MATHEW Noe 10/20/2024 9:02 AM L Inj/Asp: R knee Indications: pain Details: 22 G needle, anterolateral approach Medications: 4 mL lidocaine 1 %; 80 mg methylPREDNISolone acetate 80 mg/mL Outcome: tolerated well, no immediate complications Informed Consent: Site: Knee Laterality: Right Relevant images/test results available and reviewed: yes Health status cleared: Yes Procedure/treatment, purpose, treatment alternatives, risks/potential complications and benefits explained: yes Risk/complications/benefits details: Risks include but are not limited to: The treatment may not accomplish the desired results. Additionally bleeding, infection, damage to tendon, nerve, cartilage, muscle; thinning or lightening of the skin in the area of injection; flushing or redness of the face, elevated blood pressure or blood sugar, allergic reaction, rash, increased pain Benefits include relief of inflammation and pain Patient questions answered: yes Patient agrees, verbalizes understanding, and wants to proceed: yes Consent given by: Patient Informed consent discussion completed by Physician/ELLE with patient: Verbal Pre-procedure timeout performed: yes us Arnav CARMONA IN CLINIC/BEDSIDE ORDERABLES Fin al Result * (ABNORMAL) Basic metabolic panel (06/29/2024 8:38 AM EDT) Sodium 135 133 - 145 mmol/L LAB CHEMISTRY METHOD 06/29/2024 1:13 PM [facility] Potassium 4.0 3.5 - 5.5 mmol/L LAB CHEMISTRY METHOD 06/29/2024 1:13 PM [facility] Chloride 100 96 - 110 mmol/L LAB CHEMISTRY METHOD 06/29/2024 1:13 PM [facility] CO2 28 21 - 32 mmol/L LAB CHEMISTRY METHOD 06/29/2024 1:13 PM [facility] Anion Gap 7 3 - 11 LAB CHEMISTRY METHOD 06/29/2024 1:13 PM [facility] Glucose 104(H) 70 - 100 mg/dL LAB CHEMISTRY METHOD 06/29/2024 1:13 PM [facility] BUN 21 5 - 25 mg/dL LAB CHEMISTRY METHOD 06/29/2024 1:13 PM [facility] Creatinine 0.82 0.50 - 1.10 mg/dL LAB CHEMISTRY METHOD 06/29/2024 1:13 PM EDT [facility] eGFR 77 >=60 mL/min/1. 73m2 LAB CHEMISTRY METHOD 06/29/2024 1:13 PM EDT [facility] Comment:Calculation based on the Chronic Kidney Disease Epidemiology Collaboration (CKD-EPI) equation refit without adjustment for race. BUN/Creatinine Ratio 25.6 LAB CHEMISTRY METHOD 06/29/2024 1:13 PM EDT [facility] Calcium 9.5 8.5 - 10.5 mg/dL LAB CHEMISTRY METHOD 06/29/2024 1:13 PM EDT [facility] Blood Venous blood specimen / Unknown Venipuncture / Unknown 06/29/2024 8:38 AM EDT 06/29/2024 8:38 AM EDT Brandon Morales MD LAB BLOOD ORDERABLES Final Result [facility] [address] [place] [address], * Lipid panel (04/25/2023) Pathologist [facility] LDL/HDL Ratio 3 0 - 4 Triglycerides 92 0 - 150 mg/dL Cholesterol 187 0 - 200 mg/dL HDL 73 >=40 mg/dL LDL Cholesterol 96 0 - 100 mg/dL Blood Venous blood specimen / Unknown Historical Provider LAB BLOOD ORDERABLES Denise l Result * Stool Based Tests (FOBT/FIT) (01/21/2023) Pathologist [facility] Colorectal Cancer Screening: Stool Based Tests No Interpretation , Abstracted Historical Provider HEALTH MAINTENANCE Final Result * DXA BONE DENSITY STUDY 1+ SITS AXIAL SKEL (12/24/2022 1:24 PM EDT) Anatomical Region Laterality Modality Bone Densitometr y 10/02/2022 10:2 4 AM EDT Narrative 12/25/2022 7:47 PM EDT STUDY: DUAL ENERGY X-RAY ABSORPTIOMETRY / DXA REASON FOR EXAM: Female, 67 years old. Menopausal/postmenopausal disorder TECHNIQUE: Bone Mineral Density (BMD) measurements of the lumbar spine and left hip were obtained. COMPARISON: July 03, 2020 FINDINGS: L1-L4 T score: 3.6. This corresponds to Normal bone density. This represents a 2.6 % increase in bone density compared with prior exam from July 03, 2020. Left femoral neck T score: 2.2. This corresponds to Normal bone density. Left total hip T score: 2.3. This corresponds to Normal bone density. This represents a 1.0 % increase in bone density compared with prior exam from July 03, 2020. IMPRESSION: IMPRESSION: Normal bone density Reference Information: The T-score is the number of standard deviations above or below the standard which is normal for young adults at their peak bone mineral density. The World Health Organization (WHO) interprets the T-scores as follows: Above -1 Normal bone density Between -1 and -2.5 Osteopenia Equal to / or below -2.5 Osteoporosis As a practical clinical guideline, osteopenia may be graded as follows: Mild -1 through -1.5 Moderate -1.6 through -2.0 Severe -2.1 through -2.4 References: 1. NIH Osteoporosis and Related Bone Diseases http://www.osteo.org 2. International Society for Clinical Densitometry http://www.iscd.org 3. National Osteoporosis Foundation http://www.nof.org Procedure Note Milvia Meeks MD - 05/06/2023 STUDY: DUAL ENERGY X-RAY ABSORPTIOMETRY / DXA REASON FOR EXAM: Female, 67 years old. Menopausal/postmenopausaldisorder TECHNIQUE: Bone Mineral Density (BMD) measurements of the lumbar spineand left hip were obtained. COMPARISON: July 03, 2020 FINDINGS: L1-L4 T score: 3.6. This corresponds to Normal bone density. This represents a 2.6 % increase in bone density compared with prior examfrom July 03, 2020. Left femoral neck T score: 2.2. This corresponds to Normal bonedensity. Left total hip T score: 2.3. This corresponds to Normal bone density. This represents a 1.0 % increase in bone density compared with prior examfrom July 03, 2020. IMPRESSION: IMPRESSION: Normal bone density Reference Information: The T-score is the number of standard deviations above or below thestandard which is normal for young adults at their peak bone mineral density. The World HealthOrganization (WHO) interprets the T-scores as follows: Above -1 Normal bone density Between -1 and -2.5 Osteopenia Equal to / or below -2.5 Osteoporosis As a practical clinical guideline, osteopenia may be graded as follows: Mild -1 through -1.5 Moderate -1.6 through -2.0 Severe -2.1 through -2.4 References: 1. NIH Osteoporosis and Related Bone Diseases http://www.osteo.org 2. International Society for Clinical Densitometry http://www.iscd.org 3. National Osteoporosis Foundation http://www.nof.org us Brandon Morales MD IMG DXA PROCEDURES Final Re sult * SCREENING MAMMOGRAPHY BI 2-VIEW BREAST INC CAD (08/29/2021 9:27 AM EDT) Anatomical Region Laterality Modality Radiographic Christi ging 08/24/2020 4:36 PM EDT Narrative 08/29/2021 10:34 AM EDT This is a summary report. The complete report is available in the patient's medical record. If you cannot access the medical record, please contact the sending organization for a detailed fax or copy. Full field digital screening mammography, using both 2D mammography and tomosynthesis, reviewed with CAD and compared to previous. In addition to standard views, implant displaced views were obtained bilaterally as well. Bilateral subpectoral silicone implants remain appropriately positioned and configured. The breasts are composed of fatty and fibroglandular tissue. No suspicious mass, architectural distortion or suspicious calcifications are identified. IMPRESSION: : No mammographic evidence of malignancy. BIRADS 1-Negative; N. 5 year breast cancer risk assessment 1.7 % Lifetime breast cancer risk assessment 5.9 % Breast cancer risk category Low (<15%) Procedure Note John Bueno MD - 03/19/2022 This is a summary report. The complete report is available in thepatient's medical record. If you cannot access the medical record, pleasecontact the sending organization for a detailed fax or copy. Full field digital screening mammography, using both 2D mammography andtomosynthesis, reviewed with CAD and compared to previous. In addition tostandard views, implant displaced views were obtained bilaterally as well.Bilateral subpectoral silicone implants remain appropriately positionedand configured. The breasts are composed of fatty and fibroglandulartissue. No suspicious mass, architectural distortion or suspiciouscalcifications are identified. IMPRESSION: : No mammographic evidence of malignancy. BIRADS 1-Negative; N. 5 year breast cancer risk assessment 1.7 % Lifetime breast cancer risk assessment 5.9 % Breast cancer risk category Low (<15%) Brandon Morales MD IMG XR PROCEDURES Final Res ult * Hepatitis C Screening (12/26/1999) Hepatitis C Screening Abstracted Historical Provider HEALTH MAINTENANCE Final Result from Last 3 Months or Most Recently Relevant to Health Maintenance Insurance [employer] Care Teams Childcare Teacher Relationship Specialty Start Date End Date Brandon Morales MD [address] [place] [address] PCP - General Internal Medicine 07/02/21
--- OUTSIDE RECORDS SUMMARY | 2024-11-11 11:21 | XMS_ITS ---
Author Name [facility] Organization Unknown Care Team Organization Name Specialty Phone Email Start Date End Da te [facility] Brandon Morales Primary Care 06/05/202210/29 [facility] Fannie Olivarez MD Primary Care 02/05/2022 11/17/2023
[2024-11-11 14:11] LABS: MANUAL DIFF FLAG NO
[2024-11-11 14:12] LABS: Hematocrit 36.7 % (37.0-47.0); Hemoglobin 12.3 g/dl (12.0-16.0); Imm Gran Abs Auto 0.01 X10*3/uL (0.00-0.03); Imm Gran Pct Auto 0.1 % (0.0-0.4); Lymphocytes Absolute Auto 2.3 X10*3/uL (1.2-4.9); Mean Corpuscular HGB Conc 33.5 g/dl (31.0-35.0); Mean Corpuscular Hemoglobin 27.7 pg (27.0-33.0); Mean Corpuscular Volume 82.7 fL (80.0-98.0); NRBC Abs Auto 0.000 X10*3/uL (0.0-0.012); NRBC Pct Auto 0.0 /100WBC (0.0-0.2); Platelet Count 403 X10*3/uL (160-400); Red Blood Count 4.44 X10*6/uL (4.20-5.50); White Blood Count 7.0 X10*3/uL (4.8-10.8)
[2024-11-11 14:25] LABS: Alanine Aminotransferase 23 U/L (0-31); Albumin Level 4.5 g/dL (3.5-5.0); Alkaline Phosphatase 75 U/L (39-117); Anion Gap 14 (12-20); Aspartate Amino Transferase 30 U/L (5-31); Blood Urea Nitrogen 24 mg/dL (9-16); Calcium 9.5 mg/dL (8.4-10.2); Carbon Dioxide 28 mmol/L (22-29); Chloride 101 mmol/L (96-108); Estimated Glomerular Filt Rate > 60; Potassium 4.2 mmol/L (3.3-5.1); Sodium 139 mmol/L (135-145); Total Protein 7.1 g/dL (6.5-8.0)
== END 2024-11-11 10:28 | disposition home or self-care (01) ==
LOC: HO.WFDLDS 10:27
PROVIDERS: Visit Provider Student in an Organized Health Care Education/Training Program
DX: Z79.899 Other long term (current) drug therapy (principal)
CPT/HCPCS: 36415; 80053; 85025; 85652; 86140

== ENCOUNTER 2024-11-12 11:36 | Outpatient (REF) | payer MEDICARE, SELFPAY ==
--- OUTSIDE RECORDS SUMMARY | 2024-11-12 11:39 | XMS_ITS | Clinical Summary ---
Author Organization [facility] [address] [place] [address] Address [address] [place] [address] Phone Care Team Providers Care Pullman Car Repairer Name Role Phone Brandon Morales MD Primary [...] Diagnosed Date Prediabetes 02/06/2024 Renal artery stenosis ([facility] V24) 12/17/2022 Hypokalemia 12/17/2022 Anxiety and depression 08/29/2021 PMR (polymyalgia rheumatica) ([facility] V24) 03/22 Elevated serum creatinine 03/22/2020 Positive [...] 8:30 AM EDT Office Visit Orthopedics - [place] [address] [place] [address] Arnav Aviles PA Primary osteoarthritis of right knee (Primary Dx) 09/08/2024 8:30 AM EDT Office [place] [facility] [address] [place] [address] Arnav Aviles PA Primary osteoarthritis of right [...] Surgery Date Site/Laterality Comments COLONOSCOPY 05/2004 PROCEDURE: [place] COLONOSCOPY FLX DX W/COLLJ SPEC WHEN PFRMD; COMMENT: normal; due 2014 SECTION PROCEDURE: [place] DELIVERY ONLY; COMMENT: 2 C/S TONSILLECTOMY PROCEDURE: HISTORICAL TONSILLECTOMY OTHER SURGICAL HISTORY 1988 Bilateral PROCEDURE: IMPLANT BREAST SILICONE/EQ; COMMENT: x2 OTHER SURGICAL HISTORY 07/06/2020 Left PROCEDURE: [place] LIGATION/BIOPSY TEMPORAL ARTERY; COMMENT: temporal artery biopsy negative for arteritis - by Dr. Philippe Parekh [facility] Medical History Medical History Date Comments Pure [...] for your loved ones. For example, child abuse worker or elderly care for an older adult? [...] 11/18/2024 8:45 AM EDT Office Visit Orthopedics [address] [phone] Arnav Aviles PA [address] [place] [address] 01/05/2025 8:15 AM EDT Office Visit [facility] [address] [phone] Brandon Morales MD [address] [place] [phone] Health Maintenance Due Date Last Done Comments [...] Procedure Name Priority Date/Time Associated Diagnosis Comments [place] ARTHROCENTESIS/ASPI RATION/INJECTION MAJOR JOINT/BURSA W/O U/S GUIDANCE [...] Recently Relevant to Health Maintenance Results * [place] ARTHROCENTESIS/ASPIRATION/INJECTION MAJOR JOINT/BURSA W/O U/S GUIDANCE (10/20/2024 [...] mmol/L LAB CHEMISTRY METHOD 06/29/2024 1:13 PM [facility] Potassium 4.0 3.5 - 5.5 mmol/L LAB CHEMISTRY METHOD 06/29/2024 1:13 PM [facility] Chloride 100 96 - 110 mmol/L LAB CHEMISTRY METHOD 06/29/2024 1:13 PM [facility] CO2 28 21 - 32 mmol/L LAB CHEMISTRY METHOD 06/29/2024 1:13 PM [facility] Anion Gap 7 3 - 11 LAB CHEMISTRY METHOD 06/29/2024 1:13 PM [facility] Glucose 104(H) 70 - 100 mg/dL LAB CHEMISTRY METHOD 06/29/2024 1:13 PM [facility] BUN 21 5 - 25 mg/dL LAB CHEMISTRY METHOD 06/29/2024 1:13 PM [facility] Creatinine 0.82 0.50 - 1.10 mg/dL LAB CHEMISTRY METHOD 06/29/2024 1:13 PM EDT [facility] eGFR 77 >=60 mL/min/1. 73m2 LAB CHEMISTRY METHOD 06/29/2024 1:13 PM EDT [facility] Comment:Calculation based on the Chronic Kidney Disease Epidemiology Collaboration (CKD-EPI) equation refit without adjustment for race. BUN/Creatinine Ratio 25.6 LAB CHEMISTRY METHOD 06/29/2024 1:13 PM EDT [facility] Calcium 9.5 8.5 - 10.5 mg/dL LAB CHEMISTRY METHOD 06/29/2024 1:13 PM EDT [facility] Blood Venous blood specimen / Unknown Venipuncture / Unknown 06/29/2024 8:38 AM EDT 06/29/2024 8:38 AM EDT Brandon Morales MD LAB BLOOD ORDERABLES Final Result [facility] [address] [place] [address], * Lipid panel (04/25/2023) Pathologist [facility] LDL/HDL Ratio 3 0 - 4 Triglycerides 92 0 - 150 mg/dL Cholesterol 187 0 - 200 mg/dL HDL 73 >=40 mg/dL LDL Cholesterol 96 0 - 100 mg/dL Blood Venous blood specimen / Unknown Historical Provider LAB BLOOD ORDERABLES Denise l Result * Stool Based Tests (FOBT/FIT) (01/21/2023) Pathologist [facility] Colorectal Cancer Screening: Stool Based Tests [...] [employer] Care Teams Pullman Car Repairer Relationship Specialty Start Date End Date rBandon Morales MD [address] [place] [address] PCP - General Internal Medicine 07/02/21
--- OUTSIDE RECORDS SUMMARY | 2024-11-12 11:39 | XMS_ITS | Clinical Summary ---
Author Organization [facility], Address [address] [place] [address] [place] [address] Phone Care Team Providers Care Manager Legal Name Role Phone Brandon Morales MD Primary Care Provider [phone] Allergies Active Allergy Reactions Criticality Noted Date [...] Coronary atherosclerosis of unspecified type of vessel, wiyot or graft 09/30/2022 Serum creatinine above reference range 0 Cyst of kidney 03/16/2015 Hematuria of undiagnosed cause 07/31/2013 Overview (09/30/2022): IMO update Essential hypertension 08/13/2005 Encounters Date Type Department Care Team Description 11/10/2024 Orders Only [facility], [address] [place] [address] Roro Boucher Essential hypertension (Primary Dx); [...] Visit [facility], [address] [place] [phone] Kemal Park MD [address] [place] [phone] Health Maintenance Due Date Last Done Comments Breast Cancer Screening 1955 Colorectal Cancer Screening: Annual FOBT 2003 Colorectal Cancer Screening: Colonoscopy 2003 Colorectal Cancer Screening: Sigmoidoscopy 2003 Influenza Vaccine (#1) 2024 4, 12/20/2022, 01/14/2022, Additional history exists Pneumococcal Vaccine: 50+ Years Completed 04/19/2020, 04/06/2019 Hepatitis B Vaccine Aged Out No longe r eligible based on patient's age to complete this topic Insurance [facility] Care Teams Manager Legal Relationship Specialty Start Date End Date Brandon Morales MD [address] [place] [phone] PCP - [facility] 09/10/22
--- OUTSIDE RECORDS SUMMARY | 2024-11-12 11:39 | XMS_ITS | Clinical Summary ---
Author Organization [facility] Address [address] [place] [address] Phone Care Team Providers Care Stripper Cutter Machine Name Role Phone Brandon Morales MD Primary [...] CRUSH OR CHEW 3 Active Ca cit-D3-mag#11-zin [id number] (CALTRATE 600+D) 600 mg calcium- 800 unit-50 [...] Insurance [employer] HMO REPLACEMENT [facility] MEDICARE HMO REPLACEMENT [employer] H[employer] REPLACEMENT [facility] MEDICARE HMO REPLACEMENT [facility] MEDICARE HMO REPLACEMENT [employer] H[employer] REPLACEMENT [employer] H[employer] REPLACEMENT [facility] MEDICARE HMO REPLACEMENT [employer] H[employer] REPLACEMENT Care Teams Stripper Cutter Machine Relationship Specialty Start Date End Date Brandon Morales MD PCP - General Internal Medicine 10/18/22 Additional Source Comments The information contained in this document represents components of the legal health record. It is not the complete legal health record.[facility]
[2024-11-12 14:17] LABS: MANUAL DIFF FLAG NO
[2024-11-12 14:23] LABS: Appearance Urine Clear; Glucose Urine UA Negative (Negative); PH 6.0 (5.0-9.0); Specific Gravity - Urine 1.015 (1.005-1.025); UMIC TRIGGER UA YES
[2024-11-12 14:27] LABS: Hematocrit 37.9 % (37.0-47.0); Hemoglobin 12.6 g/dl (12.0-16.0); Imm Gran Abs Auto 0.02 X10*3/uL (0.00-0.03); Imm Gran Pct Auto 0.2 % (0.0-0.4); Lymphocytes Absolute Auto 2.8 X10*3/uL (1.2-4.9); Mean Corpuscular HGB Conc 33.2 g/dl (31.0-35.0); Mean Corpuscular Hemoglobin 27.3 pg (27.0-33.0); Mean Corpuscular Volume 82.2 fL (80.0-98.0); NRBC Abs Auto 0.000 X10*3/uL (0.0-0.012); NRBC Pct Auto 0.0 /100WBC (0.0-0.2); Platelet Count 413 X10*3/uL (160-400); Red Blood Count 4.61 X10*6/uL (4.20-5.50); White Blood Count 8.0 X10*3/uL (4.8-10.8)
[2024-11-12 14:43] LABS: Anion Gap 14 (12-20); Blood Urea Nitrogen 22 mg/dL (9-16); Calcium 9.9 mg/dL (8.4-10.2); Carbon Dioxide 29 mmol/L (22-29); Chloride 100 mmol/L (96-108); Estimated Glomerular Filt Rate > 60; Magnesium 2.1 mg/dL (1.6-2.6); Potassium 4.5 mmol/L (3.3-5.1); Sodium 138 mmol/L (135-145); Uric Acid 5.4 mg/dL (2.4-5.7)
[2024-11-12 14:54] LABS: Microalbum/Creatinine Ratio Ur 7.3 ug/mg cr (<30)
[2024-11-12 15:04] LABS: Parathyroid Hormone Intact 43.5 pg/mL (8.7-77.1)
== END 2024-11-12 11:37 | disposition home or self-care (01) ==
LOC: HO.WFDLDS 11:36
PROVIDERS: Visit Provider Internal Medicine
DX: I10 Essential (primary) hypertension (principal); E55.9 Vitamin D deficiency, unspecified
CPT/HCPCS: 36415; 80051; 81001; 82043; 82306; 82310; 82565; 82570; 83735; 83970; 84100; 84520; 84550; 85025

== ENCOUNTER 2024-11-17 08:12 | Outpatient (AMB) | payer MEDICARE, SELFPAY ==
--- NOTE | 2024-11-17 08:15 | A.OFFVIS_ITS ---
Vital Signs 11/17/24 08:17 Height 5 ft 4 in Weight 175 lb 7.807 oz BMI 30.1 BP 120/50 L Blood Pressure Location Lt brachial Position Sitting Pulse 58 Pulse Source Pulse Oximeter Pulse Oximetry (%) 98 Oxygen Delivery Method Room Air Intake Visit Reasons: PMR Intake Note: Patient presents today for a PMR follow up. Accompanied by: Self / Same As Patient Allergies Seasonal Allergies Allergy (Intermediate, Verified 11/17/24 08:17) Sneezing HPI HPI PMR: Details: Denies general morning stiffness. SHe used to have that with PMR flare. She has stiffness in bilateral knees in the morning. R knee> L knee. She had cortisone injection from [facility] a month ago with benefit. No GCA symptoms SHe is on prednisone 0.5mg daily for 1 month. [facility] Medical History PMR (polymyalgia rheumatica) DRAKE positive Depression Anxiety Hypothyroidism Hypertension Surgical History H/O bone graft History of temporal artery biopsy S/P silicone breast implant Hx of tonsillectomy History of 2 sections Family History Father CHF (congestive heart failure) Alzheimer disease Mother Pancreatic cancer Hypertension Diabetes Maternal Uncle Thyroid cancer Sister Psoriasis Social History Household Members: Significant Other Alcohol intake: current Alcohol intake frequency: a few times a month Alcohol type: wine Patient Tobacco Use Status: Never used Tobacco Current occupational status: retired Physical Exam Vital Signs: Last Vital Signs Pulse 58 11/17/24 08:17 BP 120/50 L 11/17/24 08:17 Pulse Ox 98 11/17/24 08:17 Oxygen Delivery Method Room Air 11/17/24 08:17 BMI result Body Mass Index 30.1 Const Other: General: Comfortable CVS: RRR Respiratory: clear to auscultation bilaterally. Good respiratory effort Skin: No lesions seen MSK: No synovitis. Normal ROM and lower extremities. Valgus deformity right knee. She is able to get up from seated position to standing position without using arms on armrest. Assessment & Plan Assessment & Plan (1) PMR (polymyalgia rheumatica): Comment: She is doing well on prednisone 0.5 mg daily. Labs from 11/11/2024 revealed normal inflammatory markers. Rheumatology history: Diagnosed 01/2020 with abrupt onset of diffuse stiffness of her body especially her neck, shoulders, thighs.? Dramatic response to prednisone 20 mg. In 05/2020 she went to the ER for headache and at that time she was evaluated for temporal arteritis she was started on prednisone 60 mg daily which did not help her headaches but gave her side effects, eventually she had a temporal artery biopsy which was negative for temporal arteritis. Flares inv olve increased body pain and stiffness. Code(s): M35.3 - Polymyalgia rheumatica Category: Medical Plan: She will decrease prednisone alternating with none on day 1 and 0.5 mg on the other day starting tomorrow Return to clinic in 3 months (2) Screening for osteoporosis: Code(s): Z13.820 - Encounter for screening for osteoporosis Category: Medical Plan: She will need bone density if she has not had 1 in 2 years. There is no bone density in expanse. Requesting last bone density report. ? Coding Level of Care Code Est Pt Level 4 (73417) Complex EM visit Add On G2211 Diagnoses PMR (polymyalgia rheumatica) M35.3 Screening for osteoporosis Z13.820
[2024-11-17 08:17] VITALS: BP 120/50; PULSE 58; O2SAT 98; BMI 30.1
--- OUTSIDE RECORDS SUMMARY | 2024-11-17 08:41 | XMS_ITS | Clinical Summary ---
Author Organization [facility] Address [address] [place] [phone] Phone Care Team Providers Care Lime Filter Operator Name Role Phone Brandon Morales MD [...] CRUSH OR CHEW 3 Active Ca cit-D3-mag#11-zin [id number]-bor (CALTRATE 600+D) 600 mg calcium- 800 unit-50 [...] Insurance [employer] HMO REPLACEMENT [facility] MEDICARE HMO REPLACEMENT [employer] H[employer] REPLACEMENT [facility]ICARE HMO REPLACEMENT [facility] MEDICARE HMO REPLACEMENT [employer] REPLACEMENT [employer] HMO REPLACEMENT [facility] MEDICARE HMO REPLACEMENT [employer] H[employer] REPLACEMENT Care Teams Lime Filter Operator Relationship Specialty Start Date End Date Brandon Morales MD PCP - General Internal Medicine 10/18/22 Additional Source Comments The information contained in this document represents components of the legal health record. It is not the complete legal health record.[facility]
--- OUTSIDE RECORDS SUMMARY | 2024-11-17 08:41 | XMS_ITS | Clinical Summary ---
Author Organization [facility] [address] [place] [address] Address [address] [place] [address] Phone Care Team Providers Care Control Center Operator Name Role Phone Brandon Morales MD Primary Care Provider [phone] Allergies Active Allergy Reactions Criticality Noted Date [...] Diagnosed Date Prediabetes 02/06/2024 Renal artery stenosis ([facility] V24) 12/17/2022 Hypokalemia 12/17/2022 Anxiety and depression 08/29/2021 PMR (polymyalgia rheumatica) ([facility] V24) 03/22 Elevated serum creatinine 03/22/2020 Positive [...] 10/20/2024 8:30 AM EDT Office Visit [place] [facility] [address] [place] [address] Arnav Aviles PA Primary osteoarthritis of right knee (Primary Dx) 09/08/2024 8:30 AM EDT Office Visit [facility] [address] [place] [phone] Arnav Aviles PA Primary osteoarthritis of right [...] Surgery Date Site/Laterality Comments COLONOSCOPY 05/2004 PROCEDURE: [place] COLONOSCOPY FLX DX W/COLLJ SPEC WHEN PFRMD; COMMENT: normal; due 2014 SECTION PROCEDURE: [place] DELIVERY ONLY; COMMENT: 2 C/S TONSILLECTOMY PROCEDURE: HISTORICAL TONSILLECTOMY OTHER SURGICAL HISTORY 1988 Bilateral PROCEDURE: IMPLANT BREAST SILICONE/EQ; COMMENT: x2 OTHER SURGICAL HISTORY 07/06/2020 Left PROCEDURE: [place] LIGATION/BIOPSY TEMPORAL ARTERY; COMMENT: temporal artery biopsy negative for arteritis - by Dr. Philippe Parekh [facility] Medical History Medical History Date Comments Pure [...] Maternal Grandfather Lung Ca ncer Maternal Grandmother Mother (Age 78) Pancreatic Cancer,chf,dm,htn Other Paternal [...] care for your loved ones. For example, early childhood services coordinator or elderly care for an older adult? [...] 11/18/2024 8:45 AM EDT Office Visit Orthopedics [address] [phone] Arnav Aviles PA [address] [place] [address] 01/05/2025 8:15 AM EDT Office Visit [facility] [address] [phone] Brandon Morales MD [address] [place] [address] Health Maintenance Due Date Last Done Comments [...] Procedure Name Priority Date/Time Associated Diagnosis Comments [place] ARTHROCENTESIS/ASPI RATION/INJECTION MAJOR JOINT/BURSA W/O U/S GUIDANCE [...] screening mammogram for malignant neoplasm of breast HM HEPATITIS C SCREENING Routine 12/26/1999 from Last 3 Months or Most Recently Relevant to Health Maintenance Results * [place] ARTHROCENTESIS/ASPIRATION/INJECTION MAJOR JOINT/BURSA W/O U/S GUIDANCE (10/20/2024 [...] mmol/L LAB CHEMISTRY METHOD 06/29/2024 1:13 PM [facility] Potassium 4.0 3.5 - 5.5 mmol/L LAB CHEMISTRY METHOD 06/29/2024 1:13 PM [facility] Chloride 100 96 - 110 mmol/L LAB CHEMISTRY METHOD 06/29/2024 1:13 PM [facility] CO2 28 21 - 32 mmol/L LAB CHEMISTRY METHOD 06/29/2024 1:13 PM [facility] Anion Gap 7 3 - 11 LAB CHEMISTRY METHOD 06/29/2024 1:13 PM [facility] Glucose 104(H) 70 - 100 mg/dL LAB CHEMISTRY METHOD 06/29/2024 1:13 PM [facility] BUN 21 5 - 25 mg/dL LAB CHEMISTRY METHOD 06/29/2024 1:13 PM [facility] Creatinine 0.82 0.50 - 1.10 mg/dL LAB CHEMISTRY METHOD 06/29/2024 1:13 PM [facility] eGFR 77 >=60 mL/min/1. 73m2 LAB CHEMISTRY METHOD 06/29/2024 1:13 PM [facility] Comment:Calculation based on the Chronic Kidney Disease Epidemiology Collaboration (CKD-EPI) equation refit without adjustment for race. BUN/Creatinine Ratio 25.6 LAB CHEMISTRY METHOD 06/29/2024 1:13 PM EDT [facility] Calcium 9.5 8.5 - 10.5 mg/dL LAB CHEMISTRY METHOD 06/29/2024 1:13 PM EDT [facility] Blood Venous blood specimen / Unknown Venipuncture / Unknown 06/29/2024 8:38 AM EDT 06/29/2024 8:38 AM EDT Brandon Morales MD LAB BLOOD ORDERABLES Final Result [facility] [address] [place] [address], * Lipid panel (04/25/2023) Pathologist [facility] LDL/HDL Ratio 3 0 - 4 Triglycerides 92 0 - 150 mg/dL Cholesterol 187 0 - 200 mg/dL HDL 73 >=40 mg/dL LDL Cholesterol 96 0 - 100 mg/dL Blood Venous blood specimen / Unknown Historical Provider LAB BLOOD ORDERABLES Denise l Result * Stool Based Tests (FOBT/FIT) (01/21/2023) Pathologist [facility] Colorectal Cancer Screening: Stool Based Tests No [...] [employer] Care Teams Control Center Operator Relationship Specialty Start Date End Date Brandon Morales MD [address] [place] [address] PCP - General Internal Medicine 07/02/21
--- OUTSIDE RECORDS SUMMARY | 2024-11-17 08:41 | XMS_ITS | Clinical Summary ---
Author Organization [facility], Address [address] [place] [address] [place] [address] Phone Care Team Providers Care Saxophone Player Name Role Phone Brandon Morales MD Primary Care Provider Allergies Active Allergy Reactions Criticality Noted Date Comments Bee Pollen 07/08/2007 Pollen Extract 07/08/2007 Medications FLUoxetine (PROzac) 10 [...] Active Problems Problem Noted Date Diagnosed Date Rheumatoid arthritis 11/17/2024 Hypokalemia 12/17/2022 Renal artery stenosis 12/17/2022 Coronary atherosclerosis of unspecified type of vessel, [place] or graft 09/30/2022 Serum creatinine above reference range 0 Cyst of kidney 03/16/2015 Hematuria of undiagnosed cause 07/31/2013 Overview (09/30/2022): IMO update Essential hypertension 08/13/2005 Encounters Date Type Department Care Team Description 11/10/2024 Orders Only [facility] [address] [place] [address] Roro Boucher Essential hypertension (Primary Dx); Vitamin D deficiency, not otherwise specified from Last 3 Months Immunizations Immunization Administration Dates Next Due Influenza Split High Dose Pr eservative Free IM 01/14/2022,01/09/2021,12/30/2019 Influenza, MDCK, PF, Quadrivalent 01/20/2019 Influenza, MDCK, Quadrivalen t, with preservative 01/20/2018,01/15/2017 Influenza, Unspecified 01/14/2022,2014,01/21/2014,01/27,01/17/2012,12/18/2010,01/22/2010 ,12/28/2008,02/12/2008,01/31/2006 Pfizer SARS-COV-2 07/06/2021, 1,06/15/2020,05/24 Pfizer SARS-CoV-2 Bivalent 3 0 mcg/0.3 mL [...] Visit [facility], [address] [place] [phone] Kemal Park MD [address] [place] [address] [place] [address] Health Maintenance Due Date Last Done Comments Breast Cancer Screening 1955 Colorectal Cancer Screening: Annual FOBT 2003 Colorectal Cancer Screening: Colonoscopy 2003 Colorectal Cancer Screening: Sigmoidoscopy 2003 Influenza Vaccine (#1) 2024 4, 12/20/2022, 01/14/2022, Additional history exists Pneumococcal Vaccine: 50+ Years Completed 04/19/2020, 04/06/2019 Hepatitis B Vaccine Aged Out No longe r eligible based on patient's age to complete this topic Insurance [facility] Care Teams Saxophone Player Relationship Specialty Start Date End Date Brandon Morales MD [address] [place] [phone] [facility] 09/10/22
== END 2024-11-17 08:44 | disposition home or self-care (01) ==
LOC: HO.RHES 08:12
PROVIDERS: PCP Internal Medicine; Visit Provider Internal Medicine Rheumatology
DX: M35.3 Polymyalgia rheumatica (principal); Z13.820 Encounter for screening for osteoporosis
CPT/HCPCS: 99214; G2211

== ENCOUNTER → 2024-11-17 08:12 | Outpatient (BNVA) | payer MEDICARE, SELFPAY | PROVIDERS: PCP Internal Medicine; Visit Provider Internal Medicine Rheumatology | DX: M35.3 Polymyalgia rheumatica (principal) | CPT/HCPCS: 99212 ==

== ENCOUNTER 2025-02-17 07:58 | Outpatient (REF) | payer MEDICARE, SELFPAY ==
--- OUTSIDE RECORDS SUMMARY | 2025-02-17 09:22 | XMS_ITS | Encounter Summary ---
Author Organization [facility] Address [address] [place] [address] Care Team Providers Care Compliance Testing Analyst Name Role Phone Jericho Hernandes MD Primary Care Provider Unavail able Madie Benjamin MD Primary Care Provider Unavaila Daysi Feng MD Primary Care Provider Un available Brandon Morales Primary Care Provider [phone] Saji Quintanilla MD Unavailable Unavailable Estrella Corbett CNM Unavailable [phone] Reason for Visit * Reason Comments E-prescribe Rx Request Encounter Details Date Type Department Care Team Description 06/19/2011 Refill Medicine/Pediatrics - [address] [phone] Jericho Hernandes MD E-prescribe Rx Request Social History Tobacco Use Types Packs/Day Years Used Date Smoking Tobacco: Never Alcohol Use Standard Drinks/Week Comments Yes 0 (1 standard drink = 0.6 oz pur e alcohol) occ Sex Assigned at Date Recorded Not on file Job Start Date Occupation Industry Not on file Not on file Not on file documented as of this encounter Miscellaneous Notes * Telephone Encounter - Violetta Banerjee M.A. - 06/19/2011 3:38 PM EDT Noted. * Telephone Encounter - Loraine Tobar - 06/19/2011 3:37 PM EDT Msg left on vm * Telephone Encounter - Violetta Banerjee M.A. - 06/19/2011 11:59 AM EDT Script done by Dr. Hernandes. Pt needs ov as per below. * Telephone Encounter - Violetta Banerjee M.A. - 06/19/2011 8:38 AM EDT Last ov 02/07/12. Pt was to follow up in a month. BSR - please scheduled pt for ov. Request sent toprovider for refill Component Value Date NA 139 11/23/2010 K 4.5 11/23/2010 CO2 25.5 11/23/2010 CL 103 11/23/2010 BUN 17 11/23/2010 CREAT 0.8 11/23/2010 GLU 93 11/23/2010 ALB 4.4 09/07/2010 SGOT 24 09/07/2010 SGPT 24 09/07/2010 TBILI 0.6 09/07/2010 ALKPHOS 61 09/07/2010 TP 6.8 09/07/2010 CA 9.3 11/23/2010 GFR > 60 11/23/2010 * Telephone Encounter - Felicia Lang - 06/19/2011 8:21 AM EDT WHEN WAS THE PATIENT'S LAST APPOINTMENT IN ADULT MEDICINE? 02/06/11 WHEN WAS THE LAST TIME THE PATIENT SAW THEIR PCP? Same as above Does patient have an upcoming appointment? no (THE MEDICATION REQUESTED IS ON THE MED LIST ABOVE) All of the medications requested were on the CURRENT MEDS list Did you check the Pharmacy information above?: YES Is this a mail order prescription request? NO Indicate how soon the patient needs the script: BY THE END OF THE DAY Patient would like script to be: FAXED TO PHARMACY If the patients Provider is not in tell the patient that the covering provider will get the request. Patients current insurance carrier is: Payor: [employer] Plan: PPO $25 [place] Product Type: PPO [id number] documented in this encounter Plan of Treatment Not on file documented as of this encounter Visit Diagnoses Not on filedocumented in this encounter Care Teams Compliance Testing Analyst Relationship Specialty Start Date End Date Jericho Hernandes MD PCP - General 02/25/00 01/26/15 Madie Benjamin MD PCP - General Internal Medicine 01/27/15 08/08/16 Daysi Whyte MD PCP - General Internal Medicine 08/09/16 07/01/21 Brandon Morales [address] [place] [address] PCP - General Internal Medicine 07/02/21 Saji Quintanilla MD [address] [place] [address] Referring Physician Rheumatology 02/12/22 Estrella Corbett, SURENDRA [address] [place] [address] Advanced Practice Retail Marketing Manager 02/12/22 documented as of this encounter
--- OUTSIDE RECORDS SUMMARY | 2025-02-17 09:22 | XMS_ITS | Encounter Summary ---
Author Organization [facility] Address [address] [place] [address] Care Team Providers Care Supervisor Shaving And Splitting Name Role Phone Jericho Hernandes MD Primary Care Provider Unavail able Madie Benjamin MD Primary Care Provider Unavaila Daysi Feng MD Primary Care Provider Un available Brandon Morales Primary Care Provider Saji Quintanilla MD Unavailable Unavailable Estrella Corbett CNM Unavailable Encounter Details Date Type Department Care Team Description 12/31/2010 Night Triage Doc Medical Records [address] [place] [phone] Abstract, Provider Social History Tobacco Use Types Packs/Day Years Used Date Smoking Tobacco: Never Alcohol Use Standard Drinks/Week Comments Yes 0 (1 standard drink = 0.6 oz pur e alcohol) soc 1/wk Sex Assigned at Date Recorded Not on file Job Start Date Occupation Industry Not on file Not on file Not on file documented as of this encounter Plan of Treatment Not on file documented as of this encounter Visit Diagnoses Not on filedocumented in this encounter Care Teams Supervisor Shaving And Splitting Relationship Specialty Start Date End Date Jericho Hernandes MD PCP - General 02/25/00 01/26/15 Madie Benjamin MD PCP - General Internal Medicine 01/27/15 08/08/16 Daysi Whyte MD PCP - General Internal Medicine 08/09/16 07/01/21 Brandon Morales [address] [place] [address] PCP - General Internal Medicine 07/02/21 Saji Quintanilla MD [address] [place] [address] Referring Physician Rheumatology 02/12/22 Estrella Corbett, [facility] [address] [place] [address] Advanced Practice Director Digital Sales 02/12/22 documented as of this encounter
--- OUTSIDE RECORDS SUMMARY | 2025-02-17 09:22 | XMS_ITS | Encounter Summary ---
Author Organization [facility] Address [address] [place] [address] Care Team Providers Care Certified Hyperbaric Technologist Name Role Phone Daysi Whyte MD Primary Care Provider Un available Brandon Morales Primary Care Provider [phone] Saji Quintanilla MD Unavailable Unavailable Estrella Corbett CN Unavailable [phone] Encounter Details Date Type Department Care Team Description 10/23/2020 Refill Medicine/Pediatrics - [address] [phone] Daysi Whyte MD Social History Tobacco Use Types Packs/Day Years Used Date Smoking Tobacco: Never Smokeless Tobacco: Never Alcohol Use Standard Drinks/Week Comments Yes 0 (1 standard drink = 0.6 oz pur e alcohol) occ; 2 wine glasses per week Sex Assigned at Date Recorded Not on file Job Start Date Occupation Industry Not on file Not on file Not on file documented as of this encounter Miscellaneous Notes * Telephone Encounter - Lon Trevizo MD - 10/24/2020 9:55 AM EDT Please set up an appointment with primary team for blood pressure follow-up and medication review. I have provided her with a refill. * Telephone Encounter - Beverly Styles Rn - 10/24/2020 9:45 AM EDT Pt last appt in adult med was 04/16/19 But has been seen frequently in rheumatology Will send a my chart message to call for appt in adult med, Lab Results Component Value Date NA 136 02/16/2020 K 4.7 02/16/2020 CO2 28 02/16/2020 CL 100 02/16/2020 BUN 24 02/16/2020 CREAT 0.85 04/19/2020 GLU 84 02/16/2020 CA 9.2 02/16/2020 GFR > 60 04/19/2020 documented in this encounter Plan of Treatment Not on file documented as of this encounter Visit Diagnoses Not on filedocumented in this encounter Care Teams Certified Hyperbaric Technologist Relationship Specialty Start Date End Date Daysi Whyte MD PCP - General Internal Medicine 08/09/16 07/01/21 Brandon Morales [address] [place] [address] PCP - General Internal Medicine 07/02/21 Saji Quintanilla MD [address] [place] [address] Referring Physician Rheumatology 02/12/22 Estrella Corbett CNM [address] [place] [address] Advanced Practice Lead Programmer Analyst 02/12/22 documented as of this encounter
--- OUTSIDE RECORDS SUMMARY | 2025-02-17 09:23 | XMS_ITS | Encounter Summary ---
Author Organization [facility] Address [address] [place] [address] Care Team Providers Care Carpet Installer Name Role Phone Madie Benjamin MD Primary Care Provider UnavailDaysi Schwartz MD Primary Care Provider Un available Brandon Morales Primary Care Provider Saji Quintanilla MD Unavailable Unavailable Estrella Corbett CNM Unavailable [phone] Encounter Details Date Type Department Care Team Description 02/17/2015 Refill Medicine/Pediatrics - [address] [phone] Madie Benjamin MD Social History Tobacco Use Types Packs/Day [...] encounter Miscellaneous Notes * Telephone Encounter - Beverly Styles Rn - 02/17/2015 11:39 AM EST Reviewed medications, Called pharmacy for mail order, spoke to Carri, no scripts received, Took verbal order, will send out to pt. My Chart message to pt. * Telephone Encounter - Beverly Styles Rn - 02/17/2015 11:39 AM ESTFrom: Judie Morales To: Madie Ross MD Sent: 02/17/2015 11:23 AM EST Subject: Medication Renewal Request Original authorizing provider: MD Judie Mccray would like a refill of the following medications: hydrochlorothiazide (HYDRODIURIL) 25 MG tablet [Madie Ross MD] metoprolol (TOPROL XL) 100 MG 24 hr tablet [Madie Ross MD] losartan (COZAAR) 100 MG tablet [Madie Ross MD] Preferred pharmacy: [facility] [address] [facility] [address] [facility] Comment: Despite a message in [facility] on 01/30 2 saying [facility], they have no record of it. Could you please send again - I really need my blood pressure meds soon! Thank you If you have any questions regarding your medication please don't hesitate to message your care team via [employer]. documented in this encounter Plan of Treatment Not on file documented as of this encounter Visit Diagnoses Diagnosis HYPERTENSION- Primary Essential hypertension, benign documented in this encounter Care Teams Carpet Installer Relationship Specialty Start Date End Date Madie Benjamin MD PCP - General Internal Medicine 01/27/15 08/08/16 Daysi Whyte MD PCP - General Internal Medicine 08/09/16 07/01/21 Brandon Morales [address] [place] [address] PCP - General Internal Medicine 07/02/21 Saji Quintanilla MD [address] [place] [address] Referring Physician Rheumatology 02/12/22 Estrella Corbett, EDDIEM [address] [place] [address] Advanced Practice Field Sales Specialist 02/12/22 documented as of this encounter
--- OUTSIDE RECORDS SUMMARY | 2025-02-17 09:23 | XMS_ITS | Encounter Summary ---
Author Organization [facility] Address [address] [place] [address] Care Team Providers Care Healthcare Manager Name Role Phone Daysi Whyte MD Primary Care Provider Un available Brandon Morales Primary Care Provider [phone] Saji Quintanilla MD Unavailable Unavailable Estrella Corbett CN Unavailable [phone] Encounter Details Date Type Department Care Team Description 07/11/2020 Orders Only Medical Records [address] [place] [address] Philippe Parekh MD [address] [place] [address] [address] [place] [address] Social History Tobacco Use Types Packs/Day Years Used Date Smoking Tobacco: Never Smokeless Tobacco: Never Alcohol Use Standard Drinks/Week Comments Yes 0 (1 standard drink = 0.6 oz pur e alcohol) occ; 2 wine glasses per week Sex Assigned at Date Recorded Not on file Job Start Date Occupation Industry Not on file Not on file Not on file COVID-19 Exposure Response Date Recorded In the last month, have you been in contact with someone who was confirmed or suspected to have Coronavirus / COVID-19? No / Unsure 07/05/2020 1:44 PM EDT documented as of this encounter Plan of Treatment Not on file documented as of this encounter Procedures Procedure Name Priority Date/Time Associated Diagnosis Comments OUTSIDE PATHOLOGY Routine 07/06/2020 documented in this encounter Results * OUTSIDE PATHOLOGY (07/06/2020) Philippe Parekh MD OUTSIDE LAB documented in this encounter Visit Diagnoses Not on filedocumented in this encounter Care Teams Healthcare Manager Relationship Specialty Start Date End Date Daysi Whyte MD PCP - General Internal Medicine 08/09/16 07/01/21 Brandon Morales [address] [place], [place] [phone] PCP - General Internal Medicine 07/02/21 Saji Quintanilla MD [address] [place] [address] Referring Physician Rheumatology 02/12/22 Estrella Corbett CNM [address] [place] [phone] Advanced Practice Steak Sauce Maker 02/12/22 documented as of this encounter
--- OUTSIDE RECORDS SUMMARY | 2025-02-17 09:23 | XMS_ITS | Encounter Summary ---
Author Organization [facility] Address [address] [place] [address] Care Team Providers Care Evaluation Analyst Name Role Phone Daysi Whyte MD Primary Care Provider Un available Brandon Morales Primary Care Provider Saji Quintanilla MD Unavailable Unavailable Estrella Corbett CN Unavailable [phone] Encounter Details Date Type Department Care Team Description 07/06/2020 Hospital Medical Records [address] [place] [address] Philippe Parekh MD [address] [place] [address] [address] [place] [address] Social History Tobacco Use Types Packs/Day Years [...] on filedocumented in this encounter Care Teams Evaluation Analyst Relationship Specialty Start Date End Date Daysi Whyte MD PCP - General Internal Medicine 08/09/16 07/01/21 Brandon Morales [address] [place] [address] PCP - General Internal Medicine 07/02/21 Saji Quintanilla MD [address] [place] [address] Referring Physician Rheumatology 02/12/22 Estrella Corbett CNM [address] [place] [id number] Advanced Practice Associate Professor Of Geography 02/12/22 documented as of this encounter
--- OUTSIDE RECORDS SUMMARY | 2025-02-17 09:25 | XMS_ITS | Encounter Summary ---
Author Organization [facility] Address [address] [place] [address] Care Team Providers Care Solar Project Manager Name Role Phone Jericho Hernandes MD Primary Care Provider Unavail able Madie Benjamin MD Primary Care Provider Unavaila Daysi Feng MD Primary Care Provider Un available Brandon Morales Primary Care Provider [phone] Saji Quintanilla MD Unavailable Unavailable Estrella Corbett CNM Unavailable [phone] Encounter Details Date Type Department Care Team Description 06/16/2013 Night Triage Doc Medical Records [address] [place] [address] Abstract, Provider Social History Tobacco Use Types [...] on filedocumented in this encounter Care Teams Solar Project Manager Relationship Specialty Start Date End Date Jericho Hernandes MD PCP - General 02/25/00 01/26/15 Madie Benjamin MD PCP - General Internal Medicine 01/27/15 08/08/16 Daysi Whyte MD PCP - General Internal Medicine 08/09/16 07/01/21 Brandon Morales [address] [place] [address] PCP - General Internal Medicine 07/02/21 Saji Quintanilla MD [address] [place] [address] Referring Physician Rheumatology 02/12/22 Estrella Corbett, EDDIE[address] [address] Advanced Practice Training And Development Professional 02/12/22 documented as of this encounter
--- OUTSIDE RECORDS SUMMARY | 2025-02-17 09:26 | XMS_ITS | Encounter Summary ---
Author Organization [facility] Address [address] [place] [address] Care Team Providers Care Network Operations Project Manager Name Role Phone Daysi Whyte MD Primary Care Provider Un available Brandon Morales Primary Care Provider [phone] Saji Quintanilla MD Unavailable Unavailable Estrella Corbett CN Unavailable [phone] Encounter Details Date Type Department Care Team Description 12/01/2019 Pt. Non Urgent Medic al Question Medicine/Pediatrics - [address] [phone] Daysi Whyte MD Social History Tobacco Use [...] on file documented as of this encounter Progress Notes * Leti Ordonez M.A. - 12/01/2019 3:50 PM EDTFrom: Judie Morales To: Daysi Whyte MD Sent: 12/01/2019 3:48 PM EDT Subject: Can I do telemed with risk manager or do I need an inperson appointment Last January I started having genital itching, but I could tell it wasn't a yeast infection (no pain or discharge), although I used an OTC treatment just in case. The irritation never cleared up, infact the skin seemed to be getting red, thinner and I started getting like little cuts, which itched even more. I put off coming in and then COVID made an appointment inadvisable. I started using Monistat with 1% cortisone and it soothes it some but it keeps getting worse, with white patches of raised, wrinkly skin, like hard scars. Recently I researched the problem and it sounds and looks exactly like lichen sclerosis. I'm wondering if risk manager does telemed, or if I have to make a appointment. Ple ase advise. Thank you. Judie Morales documented in this encounter Plan of Treatment Not on file documented as of this encounter Visit Diagnoses Not on filedocumented in this encounter Care Teams Network Operations Project Manager Relationship Specialty Start Date End Date Daysi Whyte MD PCP - General Internal Medicine 08/09/16 07/01/21 Brandon Morales [address] [place] [address] PCP - General Internal Medicine 07/02/21 Saji Quintanilla MD [address] [place] [address] Referring Physician Rheumatology 02/12/22 Estrella Corbett, CN [address] [place] [address] Advanced Practice Poultry Service Technician 02/12/22 documented as of this encounter
--- OUTSIDE RECORDS SUMMARY | 2025-02-17 09:26 | XMS_ITS | Encounter Summary ---
Author Organization [facility] Address [address] [place] [address] Care Team Providers Care City Mail Carrier Name Role Phone Jericho Hernandes MD Primary Care Provider Unavail able Madie Benjamin MD Primary Care Provider Unavaila Daysi Feng MD Primary Care Provider Un available Brandon Morales Primary Care Provider [phone] Saji Quintanilla MD Unavailable Unavailable Estrella Corbett CNM Unavailable [phone] Encounter Details Date Type Department Care Team Description 08/19/2012 Pt. Referral Request [address] [address] Md Christopher Social History Tobacco Use Types Packs/Day Years [...] on filedocumented in this encounter Care Teams City Mail Carrier Relationship Specialty Start Date End Date Jericho Hernandes MD PCP - General 02/25/00 01/26/15 Madie Benjamin MD PCP - General Internal Medicine 01/27/15 08/08/16 Daysi Whyte MD PCP - General Internal Medicine 08/09/16 07/01/21 Brandon Morales [address] [place] [address] PCP - General Internal Medicine 07/02/21 Saji Quintanilla MD [address] [place] [address] Referring Physician Rheumatology 02/12/22 Estrella Corbett, [address] [address] Advanced Practice Fish Salter 02/12/22 documented as of this encounter
--- OUTSIDE RECORDS SUMMARY | 2025-02-17 09:26 | XMS_ITS | Encounter Summary ---
Author Organization [facility] Address [address] [place] [address] Care Team Providers Care Public Health Training Assistant Name Role Phone Jericho Hernandes MD Primary Care Provider Unavail able Madie Benjamin MD Primary Care Provider Unavaila Daysi Feng MD Primary Care Provider Un available Brandon Morales Primary Care Provider [phone] Saji Quintanilla MD Unavailable Unavailable Estrella Corbett CNM Unavailable [phone] Encounter Details Date Type Department Care Team Description 10/05/2012 Pt. Non Urgent Medic al Question Medicine/Pediatrics - [address] [phone] Jericho Hernandes MD Social History Tobacco Use Types Packs/Day [...] as of this encounter Progress Notes * Deirdre SummersPTateN. - 10/05/2012 11:54 AM EDTFrom: ADRYJUDIE To: Jericho Hernandes MD Sent: FriOct 05, 2012 11:52 AM Subject: subsitute for medication I received a reply regarding the prescriptios being sent and am checking on it, but not the substitution question Previously sent: During my last visit 90 day supplies of these and hyrochlorothiazide were [facility]to be sent to [facility]. I got hydrocl. but don't even see a record on [facility] site of them receiving the other 2. Please FAX to them GAURAV @ [phone]. I have a few losartin but am outof metoprolol XR. I COULD TAKE MY 'S ATENOLOL, BUT NEED TO KNOW EQUIVALENT DOSE Please advise. Thank you. documented in this encounter Plan of Treatment Not on file documented as of this encounter Visit Diagnoses Not on filedocumented in this encounter Care Teams Public Health Training Assistant Relationship Specialty Start Date End Date Jericho Hernandes MD PCP - General 02/25/00 01/26/15 Madie Benjamin MD PCP - General Internal Medicine 01/27/15 08/08/16 Daysi Whyte MD PCP - General Internal Medicine 08/09/16 07/01/21 Brandon Morales [address] [place] [address] PCP - General Internal Medicine 07/02/21 Saji Quintanilla MD [address] [place] [address] Referring Physician Rheumatology 02/12/22 Estrella Corbett, [address] [address] Advanced Practice Steel Fabricating Supervisor 02/12/22 documented as of this encounter
--- OUTSIDE RECORDS SUMMARY | 2025-02-17 09:27 | XMS_ITS | Encounter Summary ---
Author Organization [facility] Address [address] [place] [address] Care Team Providers Care Home Health Clinician Name Role Phone Daysi Whyte MD Primary Care Provider Un available rBandon Morales Primary Care Provider [phone] Saji Quintanilla MD Unavailable Unavailable Estrella Corbett CN Unavailable [phone] Encounter Details Date Type Department Care Team Description 09/24/2018 Pt. Non Urgent Medic al Question Medicine/Pediatrics - [address] [phone] Daysi Whyte MD Social History Tobacco Use [...] of this encounter Progress Notes * Deirdre Pineda L.P.N. - 09/24/2018 8:45 AM EDTFrom: Judie Morales To: Daysi Whyte MD Sent: 09/24/2018 7:24 AM EDT Subject: refill needed At my last visit I had refills ordered for all my prescriptions except levothroxin, which I had just gotten a 30 day prescription for to tide me over until my appointment. I now need to get my regular 90 day refill through [facility] mail [facility] pharmacy. Please send a new [facility]. Thank you. Judie Morales documented in this encounter Plan of Treatment Not on file documented as of this encounter Visit Diagnoses Not on filedocumented in this encounter Care Teams Home Health Clinician Relationship Specialty Start Date End Date Daysi Whyte MD PCP - General Internal Medicine 08/09/16 07/01/21 Brandon Morales [address] [place] [address] PCP - General Internal Medicine 07/02/21 Saji Quintanilla MD [address] [place] [address] Referring Physician Rheumatology 02/12/22 Estrella Corbett, [address] [address] Advanced Practice Ring Sorter 02/12/22 documented as of this encounter
--- OUTSIDE RECORDS SUMMARY | 2025-02-17 09:27 | XMS_ITS | Encounter Summary ---
Author Organization [facility] Address [address] [place] [address] Care Team Providers Care Manager Entry Name Role Phone Daysi Whyte MD Primary Care Provider Un available Brandon Morales Primary Care Provider [phone] Saji Quintanilla MD Unavailable Unavailable Estrella Corbett CN Unavailable [phone] Encounter Details Date Type Department Care Team Description 11/14/2018 Pt. Non Urgent Medic al Question Medicine/Pediatrics - [address] [phone] Daysi Whyte MD Social History Tobacco Use [...] Progress Notes * Deirdre Pineda L.P.N. - 11/16/2018 9:00 AM EDTFrom: Judie Morales To: Daysi Whyte MD Sent: 11/14/2018 11:17 AM EDT Subject: Medicare Dr. Whyte is my Primary Care Doctor. I will be switching to Medicare, the [facility] Medicare Advantage Premium Plan. Will I still be able to have Dr. Whyte as my PCP? Thank you, Judie Morales documented in this encounter Plan of Treatment Not on file documented as of this encounter Visit Diagnoses Not on filedocumented in this encounter Care Teams Manager Entry Relationship Specialty Start Date End Date Daysi Whyte MD PCP - General Internal Medicine 08/09/16 07/01/21 Brandon Morales [address] [place] [address] PCP - General Internal Medicine 07/02/21 Saji Quintanilla MD [address] [place] [address] Referring Physician Rheumatology 02/12/22 Estrella Corbett, [facility] [address] [place] [address] Advanced Practice City Director 02/12/22 documented as of this encounter
--- OUTSIDE RECORDS SUMMARY | 2025-02-17 09:27 | XMS_ITS | Encounter Summary ---
Author Organization [facility] Address [address] [place] [address] Care Team Providers Care Custodian Supervisor Name Role Phone Brandon Morales Primary Care Provider [phone] Saji Quintanilla MD Unavailable Unavailable Estrella Corbett CNM Unavailable [phone] Encounter Details Date Type Department Care Team Description 12/10/2022 Management Assistant Report Medical Records [address] [place] [address] Saji Quintanilla MD Social History Tobacco Use Types Packs/Day [...] on filedocumented in this encounter Care Teams Custodian Supervisor Relationship Specialty Start Date End Date Brandon Morales [address] [place], [place] [phone] PCP - General Internal Medicine 07/02/21 Saji Quintanilla MD [address] [place] [address] Referring Physician Rheumatology 02/12/22 Estrella Corbett CNM [address] [place] [address] Advanced Practice Denture Packer 02/12/22 documented as of this encounter
--- OUTSIDE RECORDS SUMMARY | 2025-02-17 09:28 | XMS_ITS | Encounter Summary ---
Author Organization [facility] Address [address] [place] [address] Care Team Providers Care Rate And Cost Analyst Name Role Phone Brandon Morales Primary Care Provider [phone] Saji Quintanilla MD Unavailable Unavailable Estrella Corbett CNM Unavailable [phone] Encounter Details Date Type Department Care Team Description 09/30/2022 Alarm Security Or Surveillance Monitor Report Medical Records [address] [place] [address] [place] Social History Tobacco Use Types Packs/Day Years [...] Exposure Response Date Recorded In the last 10 days, have tori u been in contact with someone who was confirmed or suspected to have Coronavirus/COVID-19? No / Unsure 10/02/2022 9:36 AM EDT documented as of this encounter Plan of Treatment Not on file documented as of this encounter Visit Diagnoses Not on filedocumented in this encounter Care Teams Rate And Cost Analyst Relationship Specialty Start Date End Date Brandon Morales [address] [place], [place] [phone] PCP - General Internal Medicine 07/02/21 Saji Quintanilla MD [address] [place] [address] Referring Physician Rheumatology 02/12/22 Estrella Corbett CNM [address] [place] [address] Advanced Practice Molded Goods Controls Operator 02/12/22 documented as of this encounter
--- OUTSIDE RECORDS SUMMARY | 2025-02-17 09:29 | XMS_ITS | Encounter Summary ---
Author Organization [facility] Address [address] [place] [address] Care Team Providers Care Security Systems Manager Name Role Phone Brandon Morales Primary Care Provider [phone] Saji Quintanilla MD Unavailable Unavailable Estrella Corbett CNM Unavailable [phone] Encounter Details Date Type Department Care Team Description 08/21/2022 Hospital Medical Records [address] [place] [address] Social History Tobacco Use Types Packs/Day Years [...] In the last 10 days, have tori arnett been in contact with someone who was confirmed or suspected to have Coronavirus/COVID-19? No / Unsure 08/12/2022 11:04 AM EDT documented as of this encounter Plan of Treatment Not on file documented as of this encounter Visit Diagnoses Not on filedocumented in this encounter Care Teams Security Systems Manager Relationship Specialty Start Date End Date Brandon Morales [address] [place] [address] PCP - General Internal Medicine 07/02/21 Saji Quintanilla MD [address] [place] [address] Referring Physician Rheumatology 02/12/22 Estrella Corbett, [address] [id number] Advanced Practice Crusher Assembler 02/12/22 documented as of this encounter
--- OUTSIDE RECORDS SUMMARY | 2025-02-17 09:29 | XMS_ITS | Encounter Summary ---
Author Organization [facility] Address [address] [place] [address] Care Team Providers Care Credit Risk Analyst Name Role Phone Brandon Morales Primary Care Provider [phone] Saji Quintanilla MD Unavailable Unavailable Estrella Corbett CNM Unavailable [phone] Encounter Details Date Type Department Care Team Description 09/20/2022 Hospital Medical Records [address] [place] [address] Jose C Rios MD Social History Tobacco Use Types Packs/Day [...] suspected to have Coronavirus/COVID-19? No / Unsure 09/16/2022 1:23 PM EDT documented as of this encounter Plan of Treatment Not on file documented as of this encounter Visit Diagnoses Not on filedocumented in this encounter Care Teams Credit Risk Analyst Relationship Specialty Start Date End Date Brandon Morales [address] [place], [place] [id number] PCP - General Internal Medicine 4/4/22 Saji Quintanilla MD [address] [place] [address] Referring Physician Rheumatology 02/12/22 Estrella Corbett CNM [address] [place] [id number] Advanced Practice Weaving Supervisor 02/12/22 documented as of this encounter
--- OUTSIDE RECORDS SUMMARY | 2025-02-17 09:30 | XMS_ITS | Encounter Summary ---
Author Organization [facility] Address [address] [place] [address] Care Team Providers Care Corrosion Prevention Metal Sprayer Name Role Phone Brandon Morales Primary Care Provider [phone] Saji Quintanilla MD Unavailable Unavailable Estrella Corbett CNM Unavailable [phone] Encounter Details Date Type Department Care Team Description 01/08/2022 Welding Machine Operator Friction Report Medical Records [address] [place] [address] Brandon Morales [address] [place] [id number] Social History Tobacco Use Types Packs/Day Years [...] Recorded In the last 10 days, have yo u been in contact with someone who was confirmed or suspected to have Coronavirus/COVID-19? No / Unsure 01/01/2022 9:55 AM EDT documented as of this encounter Plan of Treatment Not on file documented as of this encounter Visit Diagnoses Not on filedocumented in this encounter Care Teams Corrosion Prevention Metal Sprayer Relationship Specialty Start Date End Date Brandon Morales [address] [place] [address] PCP - General Internal Medicine 07/02/21 Saji Quintanilla MD [address] [place] [address] Referring Physician Rheumatology 02/12/22 Estrella Corbett, [facility] [address] [place] [address] Advanced Practice Experience Design Director 02/12/22 documented as of this encounter
--- OUTSIDE RECORDS SUMMARY | 2025-02-17 09:30 | XMS_ITS | Encounter Summary ---
Author Organization [facility] Address [address] [place] [address] Care Team Providers Care [place]. Representative Name Role Phone Brandon Morales Primary Care Provider [phone] Saji Quintanilla MD Unavailable Unavailable Estrella Corbett CNM Unavailable [phone] Encounter Details Date Type Department Care Team Description 07/02/2022 Tree Marker Report Medical Records [address] [place] [address] Saji Quintanilla MD Social History Tobacco Use [...] on filedocumented in this encounter Care Teams U.[place]. Representative Relationship Specialty Start Date End Date Brandon Morales [address] [place], [place] [phone] PCP - General Internal Medicine 07/02/21 Saji Quintanilla MD [address] [place] [address] Referring Physician Rheumatology 02/12/22 Estrella Corbett CNM [address] [place] [address] Advanced Practice Paediatric Surgeon 02/12/22 documented as of this encounter
--- OUTSIDE RECORDS SUMMARY | 2025-02-17 09:32 | XMS_ITS | Encounter Summary ---
Author Organization [facility] Address [address] [place] [address] Care Team Providers Care Saw Superintendent Name Role Phone Daysi Whyte MD Primary Care Provider Un available Brandon Morales Primary Care Provider [phone] Saji Quintanilla MD Unavailable Unavailable Estrella Corbett CN Unavailable [phone] Reason for Visit * Reason Comments E-prescribe Rx Request Encounter Details Date Type Department Care Team Description 04/22/2021 Refill Medicine/Pediatrics - [address] [phone] Lon Trevizo MD [address] [place] [address] E-prescribe Rx Request Social History Tobacco Use [...] have Coronavirus / COVID-19? No / Unsure 04/09/2021 10:32 AM EST documented as of this encounter Miscellaneous Notes * Telephone Encounter - Bigg [place] R.M.A. - 04/24/2021 10:52 AM EST Last OV 04/09/21. Upcoming Appt: NA. BP Readings from Last 5 Encounters: 04/09/21 138/80 03/15/21 120/76 01/12/21 136/62 12/28/20 110/70 11/17/20 (!) 152/84 Lab Results Component Value Date NA 140 12/28/2020 K 4.3 12/28/2020 CO2 29 12/28/2020 CL 101 12/28/2020 BUN 22 12/28/2020 CREAT 0.66 12/28/2020 GLU 113 12/28/2020 CA 8.9 12/28/2020 GFR > 60 12/28/2020 documented in this encounter Plan of Treatment Not on file documented as of this encounter Visit Diagnoses Not on filedocumented in this encounter Care Teams Saw Superintendent Relationship Specialty Start Date End Date Daysi Whyte MD PCP - General Internal Medicine 08/09/16 07/01/21 Brandon Morales [address] [place] [address] PCP - General Internal Medicine 07/02/21 Saji Quintanilla MD [address] [place] [address] Referring Physician Rheumatology 02/12/22 Estrella Corbett CNM [address] [place] [address] Advanced Practice Agricultural Extension Educator 02/12/22 documented as of this encounter
--- OUTSIDE RECORDS SUMMARY | 2025-02-17 09:32 | XMS_ITS | Encounter Summary ---
Author Organization [facility] Address [address] [place] [address] Care Team Providers Care Staff Mine Warfare Officer Name Role Phone Dayis Whyte MD Primary Care Provider Un available Brandon Morales Primary Care Provider [phone] Saji Quintanilla MD Unavailable Unavailable Estrella Corbett CN Unavailable Encounter Details Date Type Department Care Team Description 02/19/2021 Pt. Non Urgent Medical Question Rheumatology - [address] [address] Simón Méndez PA Social History Tobacco Use Types Packs/Day Years [...] have Coronavirus / COVID-19? No / Unsure 02/01/2021 10:46 AM EDT documented as of this encounter Plan of Treatment Not on file documented as of this encounter Visit Diagnoses Not on filedocumented in this encounter Care Teams Staff Mine Warfare Officer Relationship Specialty Start Date End Date Daysi Whyte MD PCP - General Internal Medicine 08/09/16 07/01/21 Brandon Morales [address] [place] [address] PCP - General Internal Medicine 07/02/21 Saji Quintanilla MD [address] [place] [address] Referring Physician Rheumatology 02/12/22 Estrella Corbett, [address] [address] Advanced Practice Health Concierge 02/12/22 documented as of this encounter
--- OUTSIDE RECORDS SUMMARY | 2025-02-17 09:33 | XMS_ITS | Encounter Summary ---
Author Organization [facility] Address [address] [place] [address] Care Team Providers Care Hand Loom Weaver Name Role Phone Brandon Morales Primary Care Provider [phone] Saji Quintanilla MD Unavailable Unavailable Estrella Corbett CNM Unavailable [phone] Encounter Details Date Type Department Care Team Description 02/03/2023 Telephone General Surgery - [address] [place] [phone] Madie Hsu MD [address] [place] [phone] Social History Tobacco Use Types Packs/Day Years [...] suspected to have Coronavirus/COVID-19? No / Unsure 01/24/2023 8:56 AM EDT documented as of this encounter Miscellaneous Notes * Telephone Encounter - Madie Hsu MD - 03/04/2023 10:21 AM EST Referral placed. The plastic surgeon will determine which procedures/diagnostic codes. * Telephone Encounter - Caridad Christie M.A. - 02/03/2023 11:02 AM EST ----- Message from Madie Hsu MD sent at 01/30/2023 4:44 PM EDT ----- Please contact the patient. 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 Would she like a referral to plastic surgery to discuss options? Telephone Information: documented in this encounter Plan of Treatment Not on file documented as of this encounter Visit Diagnoses Not on filedocumented in this encounter Care Teams Hand Loom Weaver Relationship Specialty Start Date End Date Brandon Morales [address] [place] [address] PCP - General Internal Medicine 07/02/21 Saji Quintanilla MD [address] [place] [address] Referring Physician Rheumatology 02/12/22 Estrella Corbett CNM [address] [place] [address] Advanced Practice Bulk Receiver 02/12/22 documented as of this encounter
--- OUTSIDE RECORDS SUMMARY | 2025-02-17 09:33 | XMS_ITS | Encounter Summary ---
Author Organization [facility] Address [address] [place] [address] Care Team Providers Care Afterschool Name Role Phone Jericho Hernandes MD Primary Care Provider Unavail able Madie Benjamin MD Primary Care Provider Unavaila Daysi Feng MD Primary Care Provider Un available Brandon Morales Primary Care Provider [phone] Saji Quintanilla MD Unavailable Unavailable Estrella Corbett CNM Unavailable [phone] Encounter Details Date Type Department Care Team Description 12/14/2009 Night Triage Doc Medical Records [address] [place] [id number] Abstract, Provider Social History Tobacco Use Types [...] on filedocumented in this encounter Care Teams Afterschool Relationship Specialty Start Date End Date Jericho Hernandes MD PCP - General 02/25/00 01/26/15 Madie Benjamin MD PCP - General Internal Medicine 01/27/15 08/08/16 Daysi Whyte MD PCP - General Internal Medicine 08/09/16 07/01/21 Brandon Morales [address] [place] [address] PCP - General Internal Medicine 07/02/21 Saji Quintanilla MD [address] [place] [address] Referring Physician Rheumatology 02/12/22 Estrella Corbett, [facility] [address] [place] [address] Advanced Practice Airport Screener 02/12/22 documented as of this encounter
--- OUTSIDE RECORDS SUMMARY | 2025-02-17 09:33 | XMS_ITS | Encounter Summary ---
Author Organization [facility] Address [address] [place] [address] Care Team Providers Care Communications Consultant Name Role Phone Jericho Hernandes MD Primary Care Provider Unavail able Madie Benjamin MD Primary Care Provider Unavaila Daysi Feng MD Primary Care Provider Un available Brandon Morales Primary Care Provider [phone] Saji Quintanilla MD Unavailable Unavailable Estrella Corbett CNM Unavailable [phone] Encounter Details Date Type Department Care Team Description 06/22/2009 District Wire Chief Report Medical Records [address] [place] [address] Sarwat Doan Social History Tobacco Use Types Packs/Day Years [...] on filedocumented in this encounter Care Teams Communications Consultant Relationship Specialty Start Date End Date Jericho Hernandes MD PCP - General 02/25/00 01/26/15 Madie Benjamin MD PCP - General Internal Medicine 01/27/15 08/08/16 Daysi Whyte MD PCP - General Internal Medicine 08/09/16 07/01/21 Brandon Morales [address] [place] [address] PCP - General Internal Medicine 07/02/21 Saji Quintanilla MD [address] [place] [address] Referring Physician Rheumatology 02/12/22 Estrella Corbett, [facility] [address] [place] [address] Advanced Practice Director Of Staff Development 02/12/22 documented as of this encounter
--- OUTSIDE RECORDS SUMMARY | 2025-02-17 09:34 | XMS_ITS | Encounter Summary ---
Author Organization [facility] Address [address] [place] [address] Care Team Providers Care Business Objects Architect Name Role Phone Jericho Hernandes MD Primary Care Provider Unavail able Madie Benjamin MD Primary Care Provider Unavaila Daysi Feng MD Primary Care Provider Un available Brandon Morales Primary Care Provider [phone] Saji Quintanilla MD Unavailable Unavailable Estrella Corbett CNM Unavailable [phone] Encounter Details Date Type Department Care Team Description 03/13/2012 Horologist Apprentice Report Medical Records [address] [place] [id number] Wu Callahan PA-C Social History Tobacco Use Types Packs/Day Years [...] on filedocumented in this encounter Care Teams Business Objects Architect Relationship Specialty Start Date End Date Jericho Hernandes MD PCP - General 02/25/00 01/26/15 Madie Benjamin MD PCP - General Internal Medicine 01/27/15 08/08/16 Daysi Whyte MD PCP - General Internal Medicine 08/09/16 07/01/21 Brandon Morales [address] [place] [address] PCP - General Internal Medicine 07/02/21 Saji Quintanilla MD [address] [place] [address] Referring Physician Rheumatology 02/12/22 Estrella Corbett, SURENDRA [address] [place] [id number] Advanced Practice Securities Compliance Examiner 02/12/22 documented as of this encounter
--- OUTSIDE RECORDS SUMMARY | 2025-02-17 09:34 | XMS_ITS | Encounter Summary ---
Author Organization [facility] Address [address] [place] [address] Care Team Providers Care Senior Program Manager Name Role Phone Jericho Hernandes MD Primary Care Provider Unavail able Madie Benjamin MD Primary Care Provider Unavaila Daysi Feng MD Primary Care Provider Un available Brandon Morales Primary Care Provider [phone] Saji Quintanilla MD Unavailable Unavailable Estrella Corbett CNM Unavailable [phone] Encounter Details Date Type Department Care Team Description 08/26/2011 Brickmason Report Medical Records [address] [place] [id number] Nilton Durand Social History Tobacco Use Types Packs/Day Years [...] on filedocumented in this encounter Care Teams Senior Program Manager Relationship Specialty Start Date End Date Jericho Hernandes MD PCP - General 02/25/00 01/26/15 Madie Benjamin MD PCP - General Internal Medicine 01/27/15 08/08/16 Daysi Whyte MD PCP - General Internal Medicine 08/09/16 07/01/21 Brandon Morales [address] [place] [address] PCP - General Internal Medicine 07/02/21 Saji Quintanilla MD [address] [place] [address] Referring Physician Rheumatology 02/12/22 Estrella Corbett, [facility] [address] [place] [address] Advanced Practice Baggage Screener 02/12/22 documented as of this encounter
--- OUTSIDE RECORDS SUMMARY | 2025-02-17 09:35 | XMS_ITS | Encounter Summary ---
Author Organization [facility] Address [address] [place] [address] Care Team Providers Care Mica Paster Name Role Phone Jericho Hernandes MD Primary Care Provider Unavail able Madie Benjamin MD Primary Care Provider Unavaila Daysi Feng MD Primary Care Provider Un available Brandon Morales Primary Care Provider Saji Quintanilla MD Unavailable Unavailable Estrella Corbett CNM Unavailable [phone] Encounter Details Date Type Department Care Team Description 08/17/2011 Release of Information Medical Records [address] [place] [address] Abstract, Provider Social History Tobacco Use Types [...] on filedocumented in this encounter Care Teams Mica Paster Relationship Specialty Start Date End Date Jericho Hernandes MD PCP - General 02/25/00 01/26/15 Madie Benjamin MD PCP - General Internal Medicine 01/27/15 08/08/16 Daysi Whyte MD PCP - General Internal Medicine 08/09/16 07/01/21 Brandon Morales [address] [place] [address] PCP - General Internal Medicine 07/02/21 aSji Quintanilla MD [address] [place] [address] Referring Physician Rheumatology 02/12/22 Estrella Corbett, EDDIE [address] [place], [place] [id number] Advanced Practice Derrick Boat Runner 02/12/22 documented as of this encounter
== END 2025-02-17 07:59 | disposition home or self-care (01) ==
LOC: HO.HKASLDS 07:58
PROVIDERS: PCP Internal Medicine; Visit Provider Internal Medicine Rheumatology
DX: M35.3 Polymyalgia rheumatica (principal); Z79.899 Other long term (current) drug therapy
CPT/HCPCS: 36415; 85652; 86140; 99212

== ENCOUNTER 2025-02-17 07:58 | Outpatient (AMB) | payer MEDICARE, SELFPAY ==
--- NOTE | 2025-02-17 08:00 | MHC.OFFVIS ---
Vital Signs 02/17/25 08:01 Height 5 ft 4 in Weight 167 lb 5.294 oz BMI 28.7 BP 124/50 L Blood Pressure Location Rt brachial Position Sitting Pulse 61 Pulse Source Pulse Oximeter Pulse Oximetry (%) 99 Oxygen Delivery Method Room Air Intake Visit Reasons: 3 Months Intake Note: Patient presents today for a PMR follow up. Accompanied by: Self / Same As Patient Allergies Seasonal Allergies Allergy (Intermediate, Verified 02/17/25 08:07) Sneezing HPI HPI 3 Months: Details: She has soreness in thighs started 2 months ago. Soreness occurs when she is getting up from prolonged sitting. Resolves after walking. She has intermittent pain in her shoulders. Pain is not any worse. In the last couple of days she has been experiencing sinus headache that self resolves. Denies jaw claudication, scalp tenderness, vision changes. No joint swelling. She has been off of prednisone since last visit. [facility] Medical History PMR (polymyalgia rheumatica) DRAKE positive Depression Anxiety Hypothyroidism Hypertension Surgical History H/O bone graft History of temporal artery biopsy S/P silicone breast implant Hx of tonsillectomy History of 2 sections Family History Father CHF (congestive heart failure) Alzheimer disease Mother Pancreatic cancer Hypertension Diabetes Maternal Uncle Thyroid cancer Sister Psoriasis Social History Household Members: Significant Other Alcohol intake: current Alcohol intake frequency: a few times a month Alcohol type: wine Patient Tobacco Use Status: Never used Tobacco Current occupational status: retired Physical Exam Vital Signs: Last Vital Signs Pulse 61 02/17/25 08:01 BP 124/50 L 02/17/25 08:01 Pulse Ox 99 02/17/25 08:01 Oxygen Delivery Method Room Air 02/17/25 08:01 BMI result Body Mass Index 28.7 Const Other: General: Comfortable CVS: RRR Respiratory: clear to auscultation bilaterally. Good respiratory effort Skin: No lesions seen MSK: No synovitis. Normal ROM upper and lower extremities. Valgus deformity right knee. She is able to get up from seated position to standing position without using arms on armrest. 5/5 power hip flexors. Assessment & Plan Assessment & Plan (1) PMR (polymyalgia rheumatica): Comment: She has been off of prednisone since last visit. She developed soreness in her thighs with prolonged sitting. She has preserved hip flexor strength. She has been consistent with her home exercise routine. Rheumatology history: Diagnosed 01/2020 with abrupt onset of diffuse stiffness of her body especially her neck, shoulders, thighs.? Dramatic response to prednisone 20 mg. In 05/2020 she went to the ER for headache and at that time she was evaluated for temporal arteritis she was started on prednisone 60 mg daily which did not help her headaches but gave her side effects, eventually she had a temporal artery biopsy which was negative for temporal arteritis. Flares involve increased body pain and stiffness. Dr. Quintanilla's note 11/2023: Patient's most recent DEXA scan in 2022 was within normal. Off of prednisone since 10/2024. Code(s): M35.3 - Polymyalgia rheumatica Category: Medical Plan: Inflammatory markers ordered If inflammatory markers are elevated, her current symptoms likely represent mild PMR flare off of prednisone. We discussed adding methotrexate. Discussed side effects, benefits and drug monitoring. We will call patient if lab results are abnormal. Information on methotrexate given to patient. She declined PT this visit. If symptoms progress, she will call office for PT Return to clinic in 3 months Orders: Orders C Reactive Protein Today M35.3 - Polymyalgia rheumatica, Z79.899 - Other watermelon inspector (current) drug therapy Erythrocyte Sedimentation Rate Today M35.3 - Polymyalgia rheumatica, Z79.899 - Other watermelon inspector (current) drug therapy Coding Level of Care Code Est Pt Level 4 (03291) Complex EM visit Add On G2211 Diagnoses PMR (polymyalgia rheumatica) M35.3
[2025-02-17 08:01] VITALS: BP 124/50; PULSE 61; O2SAT 99; BMI 28.7
--- OUTSIDE RECORDS SUMMARY | 2025-02-17 08:13 | XMS_ITS | Clinical Summary ---
Author Organization [facility] Address [address] [place] [address] Phone Care Team Providers Care Supervisor Polishing Name Role Phone Brandon Morales MD Primary [...] CRUSH OR CHEW 3 Active Ca cit-D3-mag#11-zin u-bepq-pbo-bor (CALTRATE 600+D) 600 mg calcium- 800 unit-50 [...] INITIAL (ONE-TIME) 2019 BLOOD PRESSURE 04/20/2023 10/18/2022 INFLUENZA VACCINE (#1) 2024 , 01/10/2021, 01/09/2021, Additional history exists COVID-19 VACCINE ( season) 2024 02/18/2022, 07/06/2021, 07/06/2021, Additional history exists Adult [...] patient's age to complete this topic IPV VACCINES Aged Out No longer eligi ble based on patient's age to complete this topic MENINGOCOCCAL VACCINES (ACWY) Aged Out No longer eligible based on patient's age to complete this topic MENINGOCOCCAL VACCINES (B) Aged Out N o longer eligible based on patient's age to complete this topic Medical Devices Not on file Insurance . [place] [id number] [facility] [place] [facility] REPLACEMENT [facility] RE[facility]EMENT [facility] [place] [employer] [place] RE[place] [facility] [place] [employer] [facility] REPLAC[place] [facility] [place] [employer] [place] REPLAC[employer] [facility] [place] [employer] REPLACEMENT Care Teams Supervisor Polishing Relationship Specialty Start Date End Date Brandon Morales MD PCP - General Internal Medicine 10/18/22 Additional Source Comments The information contained in this document represents components of the legal health record. It is not the complete legal health record.[facility]
--- OUTSIDE RECORDS SUMMARY | 2025-02-17 08:13 | XMS_ITS | Clinical Summary ---
Author Organization [facility], Address [address] [place] [address] [place] [address] Phone Care Team Providers Care Sewer Pipe Press Operator Name Role Phone Brandon Morales MD [...] Coronary atherosclerosis of unspecified type of vessel, [place] or graft 09/30/2022 Serum creatinine above reference range 0 Cyst of kidney 03/16/2015 Hematuria of undiagnosed cause 07/31/2013 Overview (09/30/2022): IMO update Essential hypertension 08/13/2005 Encounters Date Type Department Care Team Description 11/17/2024 1:30 PM EDT [facility] [address] [place] [address] Kemal Park MD Essential hypertension (Primary Dx) 11/17/2024 Documentation Only [facility] [address] [place] [address] Roro Boucher from Last 3 Months Immunizations Immunization Administration [...] Care Team (Late st Contact Info) Description 11/23/2025 1:30 PM EDT Office Visit [facility], [address] [place] [address] Kemal Park MD [address] [facility] [place] [address] Health Maintenance Due Date Last Done Comments Breast Cancer Screening 1954 Colorectal Cancer Screening: Annual FOBT 2003 Colorectal Cancer Screening: Colonoscopy 2003 Colorectal Cancer Screening: Sigmoidoscopy 2003 Influenza Vaccine (#1) 2024 , 12/20/2022, 01/14/2022, Additional history exists Pneumococcal Vaccine: 50+ Years Completed 04/19/2020, 04/06/2019 Hepatitis B Vaccine Aged Out No longe r eligible based on patient's age to complete this topic Insurance [facility] [place] Care Teams Sewer Pipe Press Operator Relationship Specialty Start Date End Date Brandon Morales MD [address] [place] [phone] PCP - [facility] 09/10/22
--- OUTSIDE RECORDS SUMMARY | 2025-02-17 08:13 | XMS_ITS | Encounter Summary ---
Author Organization [facility] Address [address] [place] [address] Phone Care Team Providers Care Automotive Refinish Technician Name Role Phone Brandon Morales MD Primary Care Provider [phone] Encounter Details Date Type Department Care Team (Late st Contact Info) Description 09/10/2022 Documentation Only [facility] [address] [facility] [address] [place] [address] Brandon Morales MD [address] [place] [address] Social History Tobacco Use Types Packs/Day Years Used Date Smoking Tobacco: Never Assessed Comments Unknown Sex and Gender Information Value Date Recorded Sex Assigned at Female 09/23/2022 9:27 AM EDT Legal Sex Female 7:53 AM EDT Gender Identity Female 09/23/2022 9:27 AM EDT Sexual Orientation Straight 09/23/2022 9: 27 AM EDT documented as of this encounter Plan of Treatment Upcoming Encounters Date Type Department Care Team (Late st Contact Info) Description 11/23/2025 1:30 PM EDT Office Visit [facility] [address] [facility] [address] [place] [address] Kemal Park MD [address] [place] [address] [place] [phone] documented as of this encounter Visit Diagnoses Not on filedocumented in this encounter Care Teams Automotive Refinish Technician Relationship Specialty Start Date End Date Brandon Morales MD [address] [place] [phone] [facility] - [facility] 09/10/22 documented as of this encounter
--- OUTSIDE RECORDS SUMMARY | 2025-02-17 08:13 | XMS_ITS | Encounter Summary ---
Author Organization [facility] Address [address] [place] [address] Phone Care Team Providers Care Production Statistical Clerk Name Role Phone Brandon Morales MD Primary Care Provider [phone] Encounter Details Date Type Department Care Team (Late st Contact Info) Description 09/10/2022 Documentation Only [facility] [address] [place] [address] Brandon Morales MD [address] [place] [address] Social History Tobacco Use Types Packs/Day Years [...] Visit [facility] [address] [place] [address] Kemal Park MD [address] [place] [address] [place] [phone] documented as of this encounter Visit Diagnoses Not on filedocumented in this encounter Care Teams Production Statistical Clerk Relationship Specialty Start Date End Date Brandon Morales MD [address] [place] [phone] PCP - [facility] 09/10/22 documented as of this encounter
--- OUTSIDE RECORDS SUMMARY | 2025-02-17 08:13 | XMS_ITS | Encounter Summary ---
Author Organization [facility] Address [address] [place] [address] Phone Care Team Providers Care Hospital Television Rental Clerk Name Role Phone Brandon Morales MD Primary Care Provider [phone] Encounter Details Date Type Department Care Team (Late Contact Info) Description 11/17/2024 Documentation Only [facility] [address] [place] [address] Roro Boucher [address] [place] [phone] Social History Tobacco Use Types Packs/Day Years Used Date Smoking Tobacco: Never Smokeless Tobacco: Never Alcohol Use Standard Drinks/Week Comments Not Currently [...] Visit [facility] [address] [address] Kemal Park MD [address] [facility] [place] [phone] documented as of this encounter Visit Diagnoses Not on filedocumented in this encounter Care Teams Hospital Television Rental Clerk Relationship Specialty Start Date End Date Brandon Morales MD [address] [place] [phone] PCP - [facility] 09/10/22 documented as of this encounter
== END 2025-02-17 08:29 | disposition home or self-care (01) ==
LOC: HO.RHES 07:58
PROVIDERS: PCP Internal Medicine; Visit Provider Internal Medicine Rheumatology
DX: M35.3 Polymyalgia rheumatica (principal)
CPT/HCPCS: 99214; G2211